=== PATIENT | male | born 1955 | race Hispanic/Latino ===

== ENCOUNTER 2020-03-19 13:08 | Emergency (ER) | payer MEDICARE ==
[~2020-03-19] VITALS: Ht 167.6 cm; Wt 90.7 kg
--- OUTSIDE RECORDS SUMMARY | 2020-03-19 13:41 | XMS REPORT | Summary of Care ---
Author Organization Unknown Address Unknown Phone Unavailable Encounter HQ Encntr_alikristan([facility]) [id number] Date(s): 08/23/14 - 09/21/14 [facility] Discharge Disposition: Home Physician Attending: Donald Salmeron MD Reason for Visit SPEECH Problem List Condition Effective Dates Status Health Status Informan t Cholesterol(Confirme Resolved d) Diabetes Resolved mellitus(Confirmed) Hypertension(Confirm Resolved ed) Allergies, Adverse Reactions, Alerts Substance Reaction Severity Status NKDA Active Medications No data available for this section Medications Administered During Your Visit No data available for this section Immunizations No data available for this section
--- OUTSIDE RECORDS SUMMARY | 2020-03-19 13:41 | XMS REPORT | CCD ---
Author Author Auto FRANSISCA Sutherland [facility] Address Unknown Phone Unavailable Care Team Providers Care Presser First Name Role Phone Dioni Tejada CP Unavailable Allergies, Adverse Reactions, Alerts Substance Reaction Status NKDA Active Problem List Condition Effective Dates Status Cholesterol Resolved Diabetes mellitus Resolved Hypertension Resolved Medications Medication Instructions Start Date End Date Status Flexeril 5 mg oral 5 mg, 1 tab, PO, TID, 21 tab, 09/22/2012 Ordered tablet Substitution Allowed, TAB ibuprofen 600 mg 600 mg, 1 tab, PO, Q6H, PRN, take 09/22/2012 Ordered oral tablet with food, 30 tab, Pain, Substitution Allowed take with food diazepam 10 mg, 2 tab, Route: PO, Drug form: 09/22/201201/2013 Completed TAB, ONCE, Dosing Weight 106.818, kg, Priority: STAT, Start date: 09/22/12 11:17:00, Stop date: 09/22/12 11:17:00 acetaminophen 1,000 mg, 2 tab, Route: PO, Drug 09/22/201201/2013 Completed form: TAB, ONCE, Dosing Weight 106.818, kg, Priority: STAT, Start date: 09/22/12 11:17:00, Stop date: 09/22/12 11:17:00 Vital Signs Most recent to oldest [Reference Range]: 1 Height 167.64 cm (09/22/2012 10:36:00) Weight 106.818 kg (09/22/2012 10:36:00) Results BEDSIDE GLUCOSE TESTING Most recent to oldest [Reference Range]: 1 Gluc POC Lifscn [70-99 mg/dL] 75 mg/dL 1 (09/22/2012 12:06:00) Comment1 Notify RN/MD *NA* (09/22/2012 12:06:00) 1Interpretive Data: Upper Reportable Limit: 200 mg/dL.
--- OUTSIDE RECORDS SUMMARY | 2020-03-19 13:41 | XMS REPORT | Summary of Care ---
Author Author [facility] Address Unknown Phone Unavailable Encounter HQ Encntr_alias([place]) [id number] Date(s): 07/21/17 - 08/19/17 [facility] Discharge Disposition: Home or Self Care Attending Physician: Karla Amaya MD Vital Signs No data available for this section Problem List Condition Effective Dates Status Health Status Informan t Cholesterol(Confirme Resolved d) Diabetes Resolved mellitus(Confirmed) Hypertension(Confirm Resolved ed) Allergies, Adverse Reactions, Alerts Substance Reaction Severity Status NKDA Active Medications No data available for this section Results No data available for this section Immunizations No data available for this section Procedures No data available for this section Social History Social History Type Response 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
--- OUTSIDE RECORDS SUMMARY | 2020-03-19 13:41 | XMS REPORT | CCD ---
Author Author Auto FRANSISCA Sutherland [facility] Address Unknown Phone Unavailable Care Team Providers Care Purchasing Internship Name Role Phone Ariana Thakkar RP Allergies, Adverse Reactions, Alerts Substance Reaction Status NKDA Active Problem List Condition Effective Dates Status Cholesterol Resolved Diabetes mellitus Resolved Hypertension Resolved
--- OUTSIDE RECORDS SUMMARY | 2020-03-19 13:41 | XMS REPORT | CCD ---
Author Author Auto FRANSISCA Sutherland Organization [facility] [place] Address Unknown Phone Unavailable Care Team Providers Care Patient Attendant Name Role Phone Donald Salmeron CP Allergies, Adverse Reactions, Alerts Substance Reaction Status NKDA Active
--- OUTSIDE RECORDS SUMMARY | 2020-03-19 13:41 | XMS REPORT | Summary of Care ---
Author Author [facility] Organization [facility] Address Unknown Phone Unavailable Encounter BRAVO Dodge(BRYN) [id number] Date(s): 07/13/16 - 07/16/16 [facility] [address] [place] [address]- [phone] Discharge Disposition: Home or Self Care Attending Physician: Donald Abel MD Admitting Physician: Donald Abel MD Vital Signs 1 2 3 Most recent to oldest [Reference Range]: 170.18 cm (07/13/16 10:08 AM) Height 98.4 DegF (07/16/16 4:19 PM) 97.3 DegF (07/16/16 11:37 AM) 98 DegF (07/16/16 8:00 AM) Temperature Oral [96.4-99.1 DegF] 139/85 mmHg (07/16/16 4:19 PM) 156/98 mmHg 1 *HI* (07/16/16 11:37 AM) 152/95 mmHg *HI* (07/16/16 8:00 AM) Blood Pressure [90-140/60-90 mmHg] 18 BRMIN (07/16/16 4:19 PM) 16 BRMIN (07/16/16 11:37 AM) 17 BRMIN (07/16/16 8:00 AM) Respiratory Rate [14-20 BRMIN] 97 bpm (07/16/16 4:19 PM) 78 bpm (07/16/16 11:37 AM) 82 bpm (07/16/16 8:00 AM) Peripheral Pulse Rate [60-100 bpm] 93.182 kg (07/13/16 10:08 AM) Weight 32.17 m2 (07/13/16 10:08 AM) Body Mass Index 1Result Comment: reported to nurse Problem List Condition Effective Dates Status Health Status Informgilda t Cholesterol(Confirme Resolved d) Diabetes Resolved mellitus(Confirmed) Hypertension(Confirm Resolved ed) Allergies, Adverse Reactions, Alerts Substance Reaction Severity Status NKDA Active Medications Amitiza 8 mcg oral capsule 8 microgram = 1 cap, PO, Bedtime, # 60 tab, 0 Refill(s) Start Date: 07/13/16 Status: Ordered cefTRIAXone + sodium chloride 0.9% INJ 100 mL 1 gm, Route: IVPB, ONCE, Dosing Weight 93.182, kg, Priority: STAT, Start date: 1 09/12/15 13:02:00 [employer], Stop date: 07/13/16 13:02:00 [employer] Notes: (Same As: Rocephin).Use with 100 mL NS and infuse over 30 min MEDICA TION WASTE Product Size: 1000 mgProduct Wasted: _0__ mg Start Date: 07/13/16 Stop Date: 07/13/16 Status: Completed cefTRIAXone + sodium chloride 0.9% INJ 100 mL 1 gm, Route: IVPB, Daily, Dosing Weight 93.182, kg, Priority: STAT, Start date: 07/13/16 15:02:00 [employer], Duration: 30 day, Stop date: 08/12/16 13:00:00 [employer] Notes: (Same As: Rocephin).Use with 100 mL NS and infuse over 30 min MEDICA TION WASTE Product Size: 1000 mgProduct Wasted: ___ mg Start Date: 07/13/16 Stop Date: 07/16/16 Status: Discontinued ciprofloxacin 500 mg oral tablet 500 mg = 1 tab, PO, Q12H, X 7 day, # 14 tab, 0 Refill(s), called to pharmacy Start Date: 07/16/16 Stop Date: 07/23/16 Status: Ordered Dextrose 50% Syringe 12.5 gm, 25 mL, Route: IVP, Drug Form: INJ, Dosing Weight 93.182, kg, PRN, PRN B lood Glucose Results, Start date: 07/13/16 17:16:00 [employer], Duration: 30 day, Stop date: 08/12/16 17:15:00 [employer] Start Date: 07/13/16 Stop Date: 07/16/16 Status: Discontinued Dextrose 50% Syringe 25 gm, 50 mL, Route: IVP, Drug Form: INJ, Dosing Weight 93.182, kg, PRN, PRN Blo od Glucose Results, Start date: 07/13/16 17:16:00 [employer], Duration: 30 day, Stop da te: 08/12/16 17:15:00 [employer] Start Date: 07/13/16 Stop Date: 07/16/16 Status: Discontinued Diovan 160 mg, 1 tab, Route: PO, Drug form: TAB, Q12H, Start date: 07/13/16 21:00:00 CS T, Duration: 30 day, Stop date: 08/12/16 9:00:00 [employer] Notes: Same as Diovan Start Date: 07/13/16 Stop Date: 07/16/16 Status: Discontinued fenofibrate 145 mg oral tablet 145 mg, 1 tab, Route: PO, Drug form: TAB, Daily, Dosing Weight 93.182, kg, Start date: 07/14/16 9:00:00 [employer], Duration: 30 day, Stop date: 08/12/16 9:00:00 [employer] Notes: (Same as: Tricor) Start Date: 07/14/16 Stop Date: 07/16/16 Status: Discontinued fenofibrate 160 mg oral tablet 160 mg = 1 tab, PO, Daily, 0 Refill(s) Start Date: 07/13/16 Status: Ordered Flagyl 500 mg, 100 mL, Route: IVPB, Drug form: INJ, ONCE, Dosing Weight 93.182, kg, Tri ority: STAT, Start date: 07/13/16 13:02:00 [employer], Stop date: 07/13/16 13:02:00 [employer] Notes: (Same as: Flagyl) Avoid alcohol. Start Date: 07/13/16 Stop Date: 07/13/16 Status: Completed Flagyl 500 mg, 100 mL, Route: IVPB, Drug form: INJ, Q12H, Dosing Weight 93.182, kg, Tri ority: STAT, Start date: 07/13/16 15:02:00 [employer], Duration: 30 day, Stop date: 13:00:00 [employer] Notes: (Same as: Flagyl) Avoid alcohol. Start Date: 07/13/16 Stop Date: 07/16/16 Status: Discontinued Flagyl 500 mg oral tablet 500 mg = 1 tab, PO, Q8H, X 7 day, # 21 tab, 0 Refill(s), called to pharmacy Start Date: 07/16/16 Stop Date: 07/23/16 Status: Ordered glucagon 1 mg, Route: IM, Drug form: PDR/INJ, PRN, Dosing Weight 93.182, kg, PRN Blood Gl ucose Results, Start date: 07/13/16 17:16:00 [employer]RI[employer] LINEMAN, Duration: 30 day, Stop date: 1 10/13/15 17:15:00 [employer] Start Date: 07/13/16 Stop Date: 07/16/16 Status: Discontinued hydrochlorothiazide 25 mg oral tablet 12.5 mg, 0.5 tab, Route: PO, Drug form: TAB, Q12H, Start date: 07/13/16 21:00:00 [employer], Duration: 30 day, Stop date: 08/12/16 9:00:00 [employer] Notes: (Same as: Hydrodiuril) With food. Start Date: 07/13/16 Stop Date: 07/16/16 Status: Discontinued hydrochlorothiazide-valsartan 12.5 mg-160 mg oral tablet 1 tab, PO, Daily, 0 Refill(s) Start Date: 07/13/16 Stop Date: 07/13/16 Status: Discontinued hydrochlorothiazide-valsartan 12.5 mg-160 mg oral tablet 1 tab, Route: PO, Drug Form: TAB, Dosing Weight 93.182, kg, BID, Start date: 9:00:00 DISTRI[employer]EMAN, Duration: 30 day, Stop date: 08/12/16 17:00:00 [employer] Start Date: 07/14/16 Stop Date: 07/13/16 Status: Deleted hydrochlorothiazide-valsartan 12.5 mg-160 mg oral tablet 1 tab, PO, BID, # 30 tab, 0 Refill(s) Start Date: 07/13/16 Status: Ordered hydrochlorothiazide-valsartan 25 mg-320 mg oral tablet 1 tab, PO, Daily, 0 Refill(s) Start Date: 07/13/16 Stop Date: 07/13/16 Status: Deleted insulin aspart 1 unit, 0.01 mL, Route: SUB-Q, Drug form: SOLN, Bedtime, Dosing Weight 93.182, k g, PRN Blood Glucose Results, Start date: 07/13/16 17:16:00 [employer], Duration: 30 da y, Stop date: 08/12/16 17:15:00 [employer] Notes: Roll in palms of hands gently; Do not shake vigorously. (Same as: Ramón Melendrez)"single patient use only"WASTE: F/P - Black; E - Municipal Trash Bin Stable f or 28 days at room temperature.Expires in days from Date Start Date: 07/13/16 Stop Date: 07/16/16 Status: Discontinued insulin aspart 4 unit, 0.04 mL, Route: SUB-Q, Drug form: SOLN, Bedtime, Dosing Weight 93.182, k g, PRN Blood Glucose Results, Start date: 07/13/16 17:16:00 [employer]EM[employer], Duration: 30 da y, Stop date: 08/12/16 17:15:00 [employer] Notes: Roll in palms of hands gently; Do not shake vigorously. (Same as: Ramón Melendrez)"single patient use only"WASTE: F/P - Black; E - Municipal Trash Bin Stable f or 28 days at room temperature.Expires in days from Date Start Date: 07/13/16 Stop Date: 07/16/16 Status: Discontinued insulin aspart 3 unit, 0.03 mL, Route: SUB-Q, Drug form: SOLN, Bedtime, Dosing Weight 93.182, k g, PRN Blood Glucose Results, Start date: 07/13/16 17:16:00 [employer], Duration: 30 da y, Stop date: 08/12/16 17:15:00 [employer] Notes: Roll in palms of hands gently; Do not shake vigorously. (Same as: Ramón Melendrez)"single patient use only"WASTE: F/P - Black; E - Municipal Trash Bin Stable f or 28 days at room temperature.Expires in days from Date Start Date: 07/13/16 Stop Date: 07/16/16 Status: Discontinued insulin aspart 2 unit, 0.02 mL, Route: SUB-Q, Drug form: SOLN, Bedtime, Dosing Weight 93.182, k g, PRN Blood Glucose Results, Start date: 07/13/16 17:16:00 [employer], Duration: 30 da y, Stop date: 08/12/16 17:15:00 [employer] Notes: Roll in palms of hands gently; Do not shake vigorously. (Same as: NovoSTEVEN Melendrez)"single patient use only"WASTE: F/P - Black; E - Municipal Trash Bin Stable f or 28 days at room temperature.Expires in days from Date Start Date: 07/13/16 Stop Date: 07/16/16 Status: Discontinued insulin aspart 5 unit, 0.05 mL, Route: SUB-Q, Drug form: SOLN, TID-Before Meals, Dosing Weight 93.182, kg, PRN Blood Glucose Results, Start date: 07/13/16 17:16:00 DISTRI[employer]ION [employer]EM[employer], Durati on: 30 day, Stop date: 08/12/16 17:15:00 [employer] Notes: Roll in palms of hands gently; Do not shake vigorously. (Same as: NovoSTEVEN G)"single patient use only"WASTE: F/P - Black; E - Municipal Trash Bin Stable f or 28 days at room temperature.Expires in days from Date Start Date: 07/13/16 Stop Date: 07/16/16 Status: Discontinued insulin aspart 1 unit, 0.01 mL, Route: SUB-Q, Drug form: SOLN, TID-Before Meals, Dosing Weight 93.182, kg, PRN Blood Glucose Results, Start date: 07/13/16 17:16:00 [employer]RI[employer]EM[employer], Durati on: 30 day, Stop date: 08/12/16 17:15:00 [employer] Notes: Roll in palms of hands gently; Do not shake vigorously. (Same as: NovoSTEVEN G)"single patient use only"WASTE: F/P - Black; E - Municipal Trash Bin Stable f or 28 days at room temperature.Expires in days from Date Start Date: 07/13/16 Stop Date: 07/16/16 Status: Discontinued insulin aspart 2 unit, 0.02 mL, Route: SUB-Q, Drug form: SOLN, TID-Before Meals, Dosing Weight 93.182, kg, PRN Blood Glucose Results, Start date: 07/13/16 17:16:00 DISTRI[employer]EM[employer], Durati on: 30 day, Stop date: 08/12/16 17:15:00 [employer] Notes: Roll in palms of hands gently; Do not shake vigorously. (Same as: Ramón Melendrez)"single patient use only"WASTE: F/P - Black; E - Municipal Trash Bin Stable f or 28 days at room temperature.Expires in days from Date Start Date: 07/13/16 Stop Date: 07/16/16 Status: Discontinued insulin aspart 3 unit, 0.03 mL, Route: SUB-Q, Drug form: SOLN, TID-Before Meals, Dosing Weight 93.182, kg, PRN Blood Glucose Results, Start date: 07/13/16 17:16:00 DISTRI[employer]EM[employer], Durati on: 30 day, Stop date: 08/12/16 17:15:00 [employer] Notes: Roll in palms of hands gently; Do not shake vigorously. (Same as: Ramón Melendrez)"single patient use only"WASTE: F/P - Black; E - Municipal Trash Bin Stable f or 28 days at room temperature.Expires in days from Date Start Date: 07/13/16 Stop Date: 07/16/16 Status: Discontinued insulin aspart 4 unit, 0.04 mL, Route: SUB-Q, Drug form: SOLN, TID-Before Meals, Dosing Weight 93.182, kg, PRN Blood Glucose Results, Start date: 07/13/16 17:16:00 DISTRI[employer]ION [employer]EM[employer], Durati on: 30 day, Stop date: 08/12/16 17:15:00 [employer] Notes: Roll in palms of hands gently; Do not shake vigorously. (Same as: Ramón Melendrez)"single patient use only"WASTE: F/P - Black; E - Municipal Trash Bin Stable f or 28 days at room temperature.Expires in days from Date Start Date: 07/13/16 Stop Date: 07/16/16 Status: Discontinued Lopid 600 mg, PO, BID, 0 Refill(s) Start Date: 07/13/16 Stop Date: 07/13/16 Status: Deleted morphine Sulfate 2 mg, 1 mL, Route: IVP, Drug form: INJ, Q4H, Dosing Weight 93.182, kg, PRN Pain Score 7-10, Start date: 07/13/16 15:02:00 [employer], Duration: 30 day, Stop date: 07/18 03/01 15:01:00 [employer] Notes: (Same as:MORPhine Sulfate) Start Date: 07/13/16 Stop Date: 07/16/16 Status: Discontinued ondansetron 4 mg, 2 mL, Route: IVP, Drug form: INJ, Q6H, Dosing Weight 93.182, kg, PRN Nause a & Vomiting, Start date: 07/13/16 15:02:00 [employer], Duration: 30 day, Stop date: 08/12/16 15:01:00 [employer] Notes: (Same as: Luiza) MEDICATION WASTE Product Size: 4 mgProduct Was lisette: ___ mg Start Date: 07/13/16 Stop Date: 07/16/16 Status: Discontinued Plavix 75 mg, 1 tab, Route: PO, Drug form: TAB, Daily, Dosing Weight 93.182, kg, Start date: 07/14/16 9:00:00 [employer], Duration: 30 day, Stop date: 08/12/16 9:00:00 [employer] Notes: (Same As: Plavix) Start Date: 07/14/16 Stop Date: 07/16/16 Status: Discontinued Plavix 75 mg oral tablet 75 mg = 1 tab, PO, Daily, # 30 tab, 0 Refill(s) Start Date: 07/13/16 Status: Ordered Saline Flush 0.9% 10 ml, Route: IVP, Drug Form: INJ, Dosing Weight 93.182, kg, PRN, PRN Line Flush , Start date: 07/13/16 15:02:00 [employer], Duration: 30 day, Stop date: 08/12/16 15:01 :00 [employer] Notes: preservative free. Start Date: 07/13/16 Stop Date: 07/16/16 Status: Discontinued Saline Flush 0.9% 10 mL, Route: IVP, Drug Form: INJ, Dosing Weight 93.182, kg, PRN, PRN Line Flush , Start date: 07/13/16 11:01:00 [employer], Duration: 30 day, Stop date: 08/12/16 11:00 :00 [employer] Notes: preservative free. Start Date: 07/13/16 Stop Date: 07/13/16 Status: Discontinued Sodium Chloride 0.9% (Bolus) IV 1,000 mL, 2,000 ml/hr, Infuse Over: 30 minutes, Route: IV, 1,000, Drug form: INJ , ONCE, Priority: STAT, Dosing Weight 93.182 kg, Start date: 07/13/16 13:05:[address], Duration: 1 doses or times, Stop date: 07/13/16 13:05:00 [employer] Start Date: 07/13/16 Stop Date: 07/13/16 Status: Completed sodium chloride 0.9% 1000 ml INJ 1,000 mL 1,000 mL, Rate: 75 ml/hr, Infuse over: 13.3 hr, Route: IV, Dosing Weight 93.182 kg, Total Volume: 1,000, Start date: 07/13/16 15:02:00 DISTRIBUTION [employer]EM[employer], Duration: 30 day, St op date: 08/12/16 15:01:00 [employer]RI[employer] Start Date: 07/13/16 Stop Date: 07/16/16 Status: Discontinued tamsulosin 0.4 mg, 1 cap, Route: PO, Drug form: CAP, BID, Dosing Weight 93.182, kg, Start d ate: 07/14/16 9:00:00 [employer]RI[employer]ION [employer]EM[employer], Duration: 30 day, Stop date: 08/12/16 17:00:00 [employer] Notes: (Same As: Flomax) "Do Not Crush" Start Date: 07/14/16 Stop Date: 07/16/16 Status: Discontinued tamsulosin 0.4 mg oral capsule 0.4 mg = 1 cap, PO, BID, 0 Refill(s) Start Date: 07/13/16 Status: Ordered Results ELECTROLYTES 1 2 3 Most recent to oldest [Reference Range]: 138 mEq/L (07/15/16 11:25 AM) 136 mEq/L (07/14/16 4:18 AM) 136 mEq/L (07/13/16 11:33 AM) Sodium Lvl [135-145 mEq/L] 3.6 mEq/L (07/15/16 11:25 AM) 3.5 mEq/L (07/14/16 4:18 AM) 3.8 mEq/L (07/13/16 11:33 AM) Potassium Lvl [3.5-5.1 mEq/L] 103 mEq/L (07/15/16 11:25 AM) 102 mEq/L (07/14/16 4:18 AM) 101 mEq/L (07/13/16 11:33 AM) Chloride Lvl [95-109 mEq/L] 26 mEq/L (07/15/16:25 AM) 24 mEq/L (07/14/16 4:18 AM) 26 mEq/L (07/13/16 11:33 AM) CO2 [24-32 mEq/L] 12.6 mEq/L (07/15/16: AM) 13.5 mEq/L (07/14/16 4:18 AM) 12.8 mEq/L (07/13/16 11:33 AM) AGAP [10.0-20.0 mEq/L] CHEM PANEL 1 2 3 Most recent to oldest [Reference Range]: 0.74 mg/dL (07/15/16 11:25 AM) 0.79 mg/dL (07/14/16 4:18 AM) 0.79 mg/dL (07/13/16 11:33 AM) Creatinine Lvl [0.50-1.40 mg/dL] 100 mL/min/1.73m2 1 *NA* (07/15/16:25 AM) 97 mL/min/1.73m2 2 *NA* (07/14/16 4:18 AM) 97 mL/min/1.73m2 3 *NA* (07/13/16 11:33 AM) eGFR 12 mg/dL (07/15/16 11:25 AM) 11 mg/dL (07/14/16 4:18 AM) 17 mg/dL (07/13/16 11:33 AM) BUN [7-22 mg/dL] 14 (07/14/16 4:18 AM) 22 (07/13/16 11:33 AM) B/C Ratio [6-25] 83 mg/dL (07/15/16 11:25 AM) 111 mg/dL *HI* (07/14/16 4:18 AM) 78 mg/dL (07/13/16 11:33 AM) Glucose Lvl [70-99 mg/dL] 7.6 g/dL (07/14/16 4:18 AM) 7.9 g/dL (07/13/16 11:33 AM) Total Protein [6.4-8.4 g/dL] 3.2 g/dL *LOW* (07/14/16 4:18 AM) 3.4 g/dL *LOW* (07/13/16 11:33 AM) Albumin Lvl [3.5-5.0 g/dL] 4.4 g/dL *HI* (07/14/16 4:18 AM) 4.5 g/dL *HI* (07/13/16 11:33 AM) Globulin [2.7-4.2 g/dL] 0.7 (07/14/16 4:18 AM) 0.8 (07/13/16 11:33 AM) A/G Ratio [0.7-1.6] 8.3 mg/dL *LOW* (07/15/16 11:25 AM) 8.4 mg/dL *LOW* (07/14/16 4:18 AM) 8.4 mg/dL *LOW* (07/13/16 11:33 AM) Calcium Lvl [8.5-10.5 mg/dL] 2.5 mg/dL (07/14/16 4:18 AM) 2.7 mg/dL (07/13/16 11:33 AM) Phosphorus [2.5-4.5 mg/dL] 2.0 mg/dL (07/15/16 11:25 AM) 1.7 mg/dL *LOW* (07/14/16 4:18 AM) 1.8 mg/dL (07/13/16 11:33 AM) Magnesium Lvl [1.8-2.4 mg/dL] 18 unit/L (07/14/16 4:18 AM) 17 unit/L (07/13/16 11:33 AM) ALT [0-65 unit/L] 16 unit/L (07/14/16 4:18 AM) 20 unit/L (07/13/16 11:33 AM) AST [0-37 unit/L] 57 unit/L (07/14/16 4:18 AM) 64 unit/L (07/13/16 11:33 AM) Alk Phos [39-136 unit/L] 0.8 mg/dL (07/14/16 4:18 AM) 0.7 mg/dL (07/13/16 11:33 AM) Bili Total [0.2-1.3 mg/dL] 179 unit/L (07/13/16 11:33 AM) Lipase Lvl [73-393 unit/L] 1Result Comment: The eGFR is calculated using the CKD-EPI formula. In most young, healthy individuals the eGFR will be >90 mL/min/1.73m2. The eGFR declines with age. An eGFR of 60-89 may be normal in some populations, particularly the elderly, for whom the CKD-EPI formula has not been extensively validated. Use of the eGFR is not recommended in the following populations: Individuals with unstable creatinine concentrations, including patients and those with serious co-morbid conditions. Patients with extremes in muscle mass or diet. The data above are obtained from the National Kidney Disease Education Program ( NKDEP) which additionally recommends that when the eGFR is used in patients with extremes of body mass index for purposes of drug dosing, the eGFR should be mul tiplied by the estimated BMI. 2Result Comment: The eGFR is calculated using the CKD-EPI formula. In most young, healthy individuals the eGFR will be >90 mL/min/1.73m2. The eGFR declines with age. An eGFR of 60-89 may be normal in some populations, particularly the elderly, for whom the CKD-EPI formula has not been extensively validated. Use of the eGFR is not recommended in the following populations: Individuals with unstable creatinine concentrations, including patients and those with serious co-morbid conditions. Patients with extremes in muscle mass or diet. The data above are obtained from the National Kidney Disease Education Program ( NKDEP) which additionally recommends that when the eGFR is used in patients with extremes of body mass index for purposes of drug dosing, the eGFR should be mul tiplied by the estimated BMI. 3Result Comment: The eGFR is calculated using the CKD-EPI formula. In most young, healthy individuals the eGFR will be >90 mL/min/1.73m2. The eGFR declines with age. An eGFR of 60-89 may be normal in some populations, particularly the elderly, for whom the CKD-EPI formula has not been extensively validated. Use of the eGFR is not recommended in the following populations: Individuals with unstable creatinine concentrations, including patients and those with serious co-morbid conditions. Patients with extremes in muscle mass or diet. The data above are obtained from the National Kidney Disease Education Program ( NKDEP) which additionally recommends that when the eGFR is used in patients with extremes of body mass index for purposes of drug dosing, the eGFR should be mul tiplied by the estimated BMI. CARDIAC ENZYMES 1 2 3 Most recent to oldest [Reference Range]: 115 unit/L (07/13/16 11:33 AM) Total CK [12-191 unit/L] 1.4 ng/mL (07/13/16 11:33 AM) CK MB [0.5-3.6 ng/mL] 1.2 (07/13/16 11:33 AM) CK MB Index [0.0-2.5] <0.02 ng/mL (07/13/16 11:33 AM) Troponin-I [0.00-0.40 ng/mL] URINE AND STOOL 1 2 3 Most recent to oldest [Reference Range]: Clear (07/13/16 12:56 PM) UA Turbidity [Clear] Yellow *NA* (07/13/16 12:56 PM) UA Color [Yellow] 6.0 (07/13/16 12:56 PM) UA pH [5.0-8.0] 1.020 (07/13/16 12:56 PM) UA Spec Grav [<=1.030] Negative mg/dL *NA* (07/13/16 12:56 PM) UA Glucose [Negative mg/dL] Small *ABN* (07/13/16 12:56 PM) UA Blood [Negative] Negative mg/dL *NA* (07/13/16 12:56 PM) UA Ketones [Negative mg/dL] 100 mg/dL *ABN* (07/13/16 12:56 PM) UA Protein [Negative mg/dL] <=1.0 mg/dL *NA* (07/13/16 12:56 PM) UA Urobilinogen [0.1-1.0 mg/dL] Negative *NA* (07/13/16 12:56 PM) UA Bili [Negative] Negative (07/13/16 12:56 PM) UA Leuk Est [Negative] Negative (07/13/16 12:56 PM) UA Nitrite [Negative] <1 /HPF (07/13/16 12:56 PM) UA WBC [0-5 /HPF] 8 /HPF *HI* (07/13/16 12:56 PM) UA RBC [0-2 /HPF] Occasional /LPF *NA* (07/13/16 12:56 PM) UA Sq Epi [Few /LPF] HEMATOLOGY 1 2 3 Most recent to oldest [Reference Range]: 10.9 K/CMM *HI* (07/15/16 11:25 AM) 13.1 K/CMM *HI* (07/14/16 4:18 AM) 16.0 K/CMM *HI* (07/13/16 11:33 AM) WBC [3.7-10.4 K/CMM] 4.93 M/CMM (07/15/16 11:25 AM) 4.99 M/CMM (07/14/16 4:18 AM) 5.18 M/CMM (07/13/16 11:33 AM) RBC [4.70-6.10 M/CMM] 14.8 g/dL (07/15/16 11:25 AM) 14.6 g/dL (07/14/16 4:18 AM) 15.1 g/dL (07/13/16 11:33 AM) Hgb [14.0-18.0 g/dL] 43.0 % (07/15/16 11:25 AM) 43.3 % (07/14/16 4:18 AM) 45.2 % (07/13/16 11:33 AM) Hct [42.0-54.0 %] 87.1 fL (07/15/16 11:25 AM) 86.9 fL (07/14/16 4:18 AM) 87.3 fL (07/13/16 11:33 AM) MCV [80.0-94.0 fL] 29.9 pg (07/15/16 11:25 AM) 29.3 pg (07/14/16 4:18 AM) 29.1 pg (07/13/16 11:33 AM) MCH [27.0-31.0 pg] 34.4 g/dL (07/15/16 11:25 AM) 33.7 g/dL (07/14/16 4:18 AM) 33.3 g/dL (07/13/16 11:33 AM) MCHC [32.0-36.0 g/dL] 12.4 % (07/15/16 11:25 AM) 12.5 % (07/14/16 4:18 AM) 12.8 % (07/13/16 11:33 AM) RDW [11.5-14.5 %] 183 K/CMM (07/15/16 11:25 AM) 186 K/CMM (07/14/16 4:18 AM) 195 K/CMM (07/13/16 11:33 AM) Platelet [133-450 K/CMM] 8.7 fL (07/15/16 11:25 AM) 8.6 fL (07/14/16 4:18 AM) 8.4 fL (07/13/16 11:33 AM) MPV [7.4-10.4 fL] 74.2 % (07/15/16 11:25 AM) 81.1 % *HI* (07/14/16 4:18 AM) 79.3 % *HI* (07/13/16 11:33 AM) Segs [45.0-75.0 %] 9.8 % *LOW* (07/15/16 11:25 AM) 7.7 % *LOW* (07/14/16 4:18 AM) 9.3 % *LOW* (07/13/16 11:33 AM) Lymphocytes [20.0-40.0 %] 13.9 % *HI* (07/15/16 11:25 AM) 10.0 % (07/14/16 4:18 AM) 9.7 % (07/13/16 11:33 AM) Monocytes [2.0-12.0 %] 1.7 % (07/15/16 11:25 AM) 0.9 % (07/14/16 4:18 AM) 1.3 % (07/13/16 11:33 AM) Eosinophils [0.0-4.0 %] 0.4 % (07/15/16 11:25 AM) 0.3 % (07/14/16 4:18 AM) 0.4 % (07/13/16 11:33 AM) Basophils [0.0-1.0 %] 8.1 K/CMM (07/15/16 11:25 AM) 10.7 K/CMM *HI* (07/14/16 4:18 AM) 12.6 K/CMM *HI* (07/13/16 11:33 AM) Segs-Bands # [1.5-8.1 K/CMM] 1.1 K/CMM (07/15/16 11:25 AM) 1.0 K/CMM (07/14/16 4:18 AM) 1.5 K/CMM (07/13/16 11:33 AM) Lymphocytes # [1.0-5.5 K/CMM] 1.5 K/CMM *HI* (07/15/16 11:25 AM) 1.3 K/CMM *HI* (07/14/16 4:18 AM) 1.5 K/CMM *HI* (07/13/16 11:33 AM) Monocytes # [0.0-0.8 K/CMM] 0.2 K/CMM (07/15/16 11:25 AM) 0.1 K/CMM (07/14/16 4:18 AM) 0.2 K/CMM (07/13/16 11:33 AM) Eosinophils # [0.0-0.5 K/CMM] 0.1 K/CMM (07/13/16 11:33 AM) Basophils # [0.0-0.2 K/CMM] 14.8 seconds *HI* (07/13/16 11:33 AM) PT [12.0-14.7 seconds] 1.14 (07/13/16 11:33 AM) INR [0.85-1.17] 29.4 seconds (07/13/16 11:33 AM) PTT [22.9-35.8 seconds] Immunizations No data available for this section Procedures No data available for this section Social History Social History Type Response 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 Patient has significant dysarthria from CVA 5 years ago and has had issues with some oropharyngeal dysphagia as well. MBS was normal. Per specch therapist " Reduced anterior to posterior tongue movment with chin lifting to use gravity to help propel the bolus posteriorly. Reduced tongue base retraction with prespill to the vallecula prior to the initiation of the swallow. No penetration or aspiration with thin from a cup, straw, nectar, pudding or cookie." Recommend Ok to discharge on 10 more days of p.o. antibiotics Cipro/Flagyl. The patient will need a colonoscopy as an outpatient after the current episode of diverticulitis resolves. He will follow up with me in clinic in 2 weeks. We will do an EGD at the same time to rule out any other etiology of dysphagia. He will need his Plavix held 3 to 4 days prior to procedure. SUBJECTIVE: Pt feeling better today. Wants to eat regular food and go home. Review of Systems: (-)=Negative,(+)=Positive 1) Const: (-) fever, (-) weight change 2) Skin: (-) rash, (-) bleeding 3) HEENT: (-) difficulty swallowing, (-) swelling 4) Eyes: (-) vision changes, (-) bleedin g 5) Neuro: (-) weakness, (-) headaches 6) Resp: (-) dyspnea on exertion, (-) co ugh 7) Cardio: (-) chest pain, (-) orthopnea 8) GI: (-) blood in stool, (-) reflux 9) : (-) dysuria, (-) bloody discharge 10) Endo: (-) heat intolerance, (-) cold intolerance OBJECTIVE: Vitals: See below General: Alert , Oriented x 3 CVS: s1s2 RRR Resp: CTA Bilaterally Abd : Soft, NT, ND , BS + Ext : no edema PROPAGATION WORKER: No gross motor/sensory defects VitalsTmp(F)[id number] 07/16 11:[id number]--- 07/16 08:[id number]--- 07/16 04:2098.115578/78--96--- 07/16 00:4498.169233/72--97--- 07/15 20:0798.629082/91--95--- 24 Hr Tmax: 98.5F (36.94c) at 07/15 20:0 7Vital Signs are the last 5 in the past 48 hours. Lines, Tubes, and Drains: 07/13/2016 11:44 Peripheral Lines: Hand Right 20 gauge Over the needle catheter No qualifying data available I&ORecordInOutBal 3024hr Tot 300 200 100 2924hr Tot 2580 0 2580 Medications (23) Active Scheduled: (7) cefTRIAXone 1 gm INJ VL + sodium chloride 0.9% INJ 100 mL 1 gm, IVPB, Daily clopidogrel 75 mg TAB 75 mg 1 tab, PO, Daily fenofibrate 145 mg tab 145 mg 1 tab, PO, Daily hydrochlorothiazide 25 mg TAB 12.5 mg 0.5 tab, PO, Q12H metroNIDAZOLE (5mg/ml) premix INJ 500 mg 100 mL, IVPB, Q12H tamsulosin 0.4 mg CAP 0.4 mg 1 cap, PO, BID valsartan 160 mg tab 160 mg 1 tab, PO, Q12H Continuous: (1) sodium chloride 0.9% 1000 ml INJ 1,000 mL 1,000 mL, IV, 75 ml/hr PRN: (15) Dextrose 50% 50 ml INJ syringe 12.5 gm 25 mL, IVP, PRN Dextrose 50% 50 ml INJ syringe 25 gm 50 mL, IVP, PRN glucagon recombinant 1 mg PDR 1 mg, IM, PRN insulin aspart 100 unit/ml 3ml Pen 1 unit 0.01 mL, SUB-Q, TID-Before Meals insulin aspart 100 unit/ml 3ml Pen 2 unit 0.02 mL, SUB-Q, TID-Before Meals insulin aspart 100 unit/ml 3ml Pen 3 unit 0.03 mL, SUB-Q, TID-Before Meals insulin aspart 100 unit/ml 3ml Pen 4 unit 0.04 mL, SUB-Q, TID-Before Meals insulin aspart 100 unit/ml 3ml Pen 5 unit 0.05 mL, SUB-Q, TID-Before Meals insulin aspart 100 unit/ml 3ml Pen 1 unit 0.01 mL, SUB-Q, Bedtime insulin aspart 100 unit/ml 3ml Pen 2 unit 0.02 mL, SUB-Q, Bedtime insulin aspart 100 unit/ml 3ml Pen 3 unit 0.03 mL, SUB-Q, Bedtime insulin aspart 100 unit/ml 3ml Pen 4 unit 0.04 mL, SUB-Q, Bedtime MORPhine sulfate PF 2 mg/ml CARP 2 mg 1 mL, IVP, Q4H ondansetron 4mg/2mL INJ SYRINGE 4 mg 2 mL, IVP, Q6H sodium chloride 0.9% 10 ml INJ (PF) 10 ml, IVP, PRN Labs (Last four charted values) WBC H 10.9(JUL 15)H 13.1(JUL 14)H 16.0(JUL 13) Hgb 14.8(JUL 15)14.6(JUL 14)15.1(JUL 13) Hct 43.0(JUL 15)43.3(JUL 14)45.2(JUL 13) Plt 183(JUL 15)186(JUL 14)195(JUL 13) Na 138(JUL 15)136(JUL 14)136(JUL 13) K 3.6(JUL 15)3.5(JUL 14)3.8(JUL 13) CO2 26(JUL 15)24(JUL 14)26(JUL 13) Cl 103(JUL 15)102(JUL 14)101(JUL 13) Cr 0.74(JUL 15)0.79(JUL 14)0.79(JUL 13) BUN 12(JUL 15)11(JUL 14)17(JUL 13) Glucose Random 83(JUL 15)H 111(JUL 14)78(JUL 13) Mg 2.0(JUL 15)L 1.7(JUL 14)1.8(JUL 13) Phos 2.5(JUL 14)2.7(JUL 13) Ca L 8.3(JUL 15)L 8.4(JUL 14)L 8.4(JUL 13) PT H 14.8(JUL 13) INR 1.14(JUL 13) PTT 29.4(JUL 13) Troponin <0.02(JUL 13) CK MB 1.4(JUL 13) Total CK 115(JUL 13)
--- OUTSIDE RECORDS SUMMARY | 2020-03-19 13:41 | XMS REPORT | CCD ---
Author Author Auto FRANSISCA Sutherland [facility] Address Unknown Phone Unavailable Care Team Providers Care Sewer Hand Name Role Phone Romeo More CP Allergies, Adverse Reactions, Alerts Substance Reaction Status NKDA Active Medications Medication Instructions Start Date End Date Status clonidine 0.2 mg, 1 tab, Route: PO, Drug 02/27/2012 02/27/20 12 Completed form: TAB, ONCE, Priority: STAT, Start date: 02/27/12 13:30:00, Stop date: 02/27/12 13:30:00 Saline Flush 0.9% 5 ml, Route: IVP, Drug Form: INJ, 02/27/2012 02/28/2012 Discontinued PRN, PRN Line Flush, Start date: 02/27/12 12:26:00, Duration: 30 day, Stop date: 03/28/12 12:25:00 Vital Signs Most recent to oldest [Reference Range]: 1 Height 167.64 cm (02/27/2012 12:15:00) Weight 103.182 kg (02/27/2012 12:15:00) Results URINALYSIS Most recent to oldest [Reference Range]: 1 UA Turbidity [Clear] Slight *ABN* (02/27/2012 13:15:00) UA Color Ltyellow *NA* (02/27/2012 13:15:00) UA pH [5.0-8.0] 7.0 (02/27/2012 13:15:00) UA Spec Grav [<=1.030] 1.010 (02/27/2012 13:15:00) UA Glucose [Negative mg/dL] Negative mg/dL *NA* (02/27/2012 13:15:00) UA Blood [Negative] Small *ABN* (02/27/2012 13:15:00) UA Ketones [Negative mg/dL] Negative mg/dL *NA* (02/27/2012 13:15:00) UA Protein [Negative mg/dL] 100 mg/dL *ABN* (02/27/2012 13:15:00) UA Urobilinogen [0.1-1.0 mg/dL] <=1.0 mg/dL *NA* (02/27/2012 13:15:00) UA Bili [Negative] Negative *NA* (02/27/2012 13:15:00) UA Leuk Est [Negative] Negative (02/27/2012 13:15:00) UA Nitrite [Negative] Negative (02/27/2012 13:15:00) UA WBC [0-5 /HPF] 1 /HPF (02/27/2012 13:15:00) UA RBC [0-2 /HPF] 10 /HPF *HI* (02/27/2012 13:15:00) UA Sq Epi None Seen *NA* (02/27/2012 13:15:00) CHEMISTRY Most recent to oldest [Reference Range]: 1 Sodium Lvl [135-145 mEq/L] 140 mEq/L (02/27/2012 13:05:00) Potassium Lvl [3.5-5.1 mEq/L] 3.6 mEq/L (02/27/2012 13:05:00) Chloride Lvl [95-109 mEq/L] 104 mEq/L (02/27/2012 13:05:00) CO2 [24-32 mEq/L] 29 mEq/L (02/27/2012 13:05:00) AGAP [10.0-20.0 mEq/L] 10.6 mEq/L (02/27/2012 13:05:00) Creatinine Lvl [0.5-1.4 mg/dL] 1.0 mg/dL (02/27/2012 13:05:00) BUN [7-22 mg/dL] 16 mg/dL (02/27/2012 13:05:00) B/C Ratio [6-25] 16 (02/27/2012 13:05:00) Glucose Lvl [70-99 mg/dL] 86 mg/dL 1 (02/27/2012 13:05:00) Total Protein [6.4-8.4 g/dL] 8.0 g/dL (02/27/2012:05:00) Albumin Lvl [3.5-5.0 g/dL] 3.7 g/dL (02/27/2012:05:00) Globulin [2.0-4.0 g/dL] 4.3 g/dL *HI* (02/27/2012:05:00) A/G Ratio [0.7-1.6] 0.9 (02/27/2012:05:00) Calcium Lvl [8.5-10.5 mg/dL] 8.6 mg/dL (02/27/2012:05:00) ALT [0-65 U/L] 33 U/L (02/27/2012:05:00) AST [0-37 U/L] 25 U/L (02/27/2012:05:00) Alk Phos [39-136 U/L] 67 U/L (02/27/2012:05:00) Bili Total [0.2-1.3 mg/dL] 0.3 mg/dL (02/27/2012:05:00) Lactic Acid Lvl [0.5-2.2 mMol/L] 1.6 mMol/L (02/27/2012:05:00) Total CK [12-191 U/L] 171 U/L (02/27/2012:05:00) CK MB [0.5-3.6 ng/mL] 3.3 ng/mL (02/27/2012:05:00) CK MB Index [0.0-2.5] 1.9 (02/27/2012:05:00) Troponin-I [0.00-0.40 ng/mL] 0.04 ng/mL (02/27/2012:05:00) BNP [<=100 pg/mL] 112 pg/mL 2 *HI* (02/27/2012:05:00) 1Interpretive Data: Adult reference range values reflect the clinical guidelines of the [place] [employer]. 2Interpretive Data: Elevated results are in line with increasing severity of congestive heart failure. Minor elevations between 100 and 300 may be seen with Myocardial Ischemia, Sodium retaining drugs, and compensated/treated heart failure. HEMATOLOGY Most recent to oldest [Reference Range]: 1 WBC [3.7-10.4 K/CMM] 12.0 K/CMM *HI* (02/27/2012 13:05:00) RBC [4.70-6.10 M/CMM] 5.93 M/CMM (02/27/2012 13:05:00) Hgb [14.0-18.0 g/dL] 18.4 g/dL *HI* (02/27/2012 13:05:00) Hct [42.0-54.0 %] 54.4 % *HI* (02/27/2012 13:05:00) MCV [80.0-94.0 fL] 91.9 fL (02/27/2012 13:05:00) MCH [27.0-31.0 pg] 31.1 pg *HI* (02/27/2012 13:05:00) MCHC [32.0-36.0 g/dL] 33.9 g/dL (02/27/2012 13:05:00) RDW [11.5-14.5 %] 13.1 % (02/27/2012 13:05:00) Platelet [133-450 K/CMM] 167 K/CMM (02/27/2012 13:05:00) MPV [7.4-10.4 fL] 9.7 fL (02/27/2012 13:05:00) Segs [45.0-75.0 %] 82.0 % *HI* (02/27/2012:05:00) Lymphocytes [20.0-40.0 %] 13.3 % *LOW* (02/27/2012 13:05:00) Monocytes [2.0-12.0 %] 4.4 % (02/27/2012 13:05:00) Eosinophils [0.0-4.0 %] 0.1 % (02/27/2012 13:05:00) Basophils [0.0-1.0 %] 0.2 % (02/27/2012 13:05:00) Segs-Bands # [1.5-8.1 K/CMM] 9.9 K/CMM *HI* (02/27/2012 13:05:00) Lymphocytes # [1.0-5.5 K/CMM] 1.6 K/CMM (02/27/2012 13:05:00) Monocytes # [0.0-0.8 K/CMM] 0.5 K/CMM (02/27/2012 13:05:00) Eosinophils # [0.0-0.5 K/CMM] 0.0 K/CMM (02/27/2012 13:05:00) Basophils # [0.0-0.2 K/CMM] 0.0 K/CMM (02/27/2012 13:05:00) PT [12.0-14.7 seconds] 12.7 seconds (02/27/2012 13:05:00) INR [0.85-1.17] 0.95 3 (02/27/2012 13:05:00) PTT [22.9-35.8 seconds] 27.7 seconds 4 (02/27/2012 13:05:00) 3Interpretive Data: RECOMMENDED RANGES FOR PROTIME INR: 2.0-3.0 for most medical and surgical thromboembolic states. 2.5-3.5 for artificial heart valves and recurrent embolism. INR SHOULD BE USED ONLY FOR PATIENTS ON STABLE ANTICOAGULANT THERAPY. 4Interpretive Data: Heparin Therapeutic Range: 57 - 92 Seconds Microbiology Reports PROCEDURE:Culture: Blood STATUS: In Progress BODY SITE: COLLECTED DATE/TIME: 02/27/2012 12:55:00 SOURCE: Blood FREE TEXT SOURCE: PRELIMINARY REPORTS Preliminary Report No Growth At 1 Day Preliminary Report No Growth; Holding PROCEDURE:Culture: Blood STATUS: In Progress BODY SITE: Right Hand COLLECTED DATE/TIME: 02/27/2012 12:45:00 SOURCE: Blood FREE TEXT SOURCE: PRELIMINARY REPORTS Preliminary Report No Growth At 1 Day Preliminary Report No Growth; Holding
--- OUTSIDE RECORDS SUMMARY | 2020-03-19 13:41 | XMS REPORT | Summary of Care ---
Author Author [facility] Organization [facility] Address Unknown Phone Unavailable Encounter [facility] [employer](FIN) [id number] Date(s): 08/29/19 - 08/29/19 [facility] [address] [place] [address]- [phone] Discharge Disposition: Home or Self Care Attending Physician: Annalee Cordova MD Referring Physician: Annalee Cordova MD Vital Signs No data available for this section Problem List Condition Effective Dates Status Health Status Informan t Cholesterol(Confirme Resolved d) Diabetes Resolved mellitus(Confirmed) Hypertension(Confirm Resolved ed) Allergies, Adverse Reactions, Alerts No Known Medication Allergies Medications No data available for this section Results No data available for this section Immunizations No data available for this section Procedures No data available for this section Social History Social History Type Response Smoking Status Never smoker; 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
--- OUTSIDE RECORDS SUMMARY | 2020-03-19 13:41 | XMS REPORT | Summary of Care ---
Author Author [facility] Address Unknown Phone Unavailable Encounter [facility] [employer](FIN) [id number] Date(s): 09/02/19 - 09/02/19 [facility] [address] [place] [address]- Discharge Disposition: Home or Self Care Attending [...]
--- OUTSIDE RECORDS SUMMARY | 2020-03-19 13:41 | XMS REPORT | CCD ---
Author Author Auto FRANSISCA Sutherland Organization [facility] Address Unknown Phone Unavailable Care Team Providers Care Oxygen Therapy Technician Name Role Phone Jeremias Shaikh CP Allergies, Adverse Reactions, Alerts Substance Reaction Status NKDA Active Problem List Condition Effective Dates Status Cholesterol Resolved Diabetes mellitus Resolved Hypertension Resolved
--- OUTSIDE RECORDS SUMMARY | 2020-03-19 13:41 | XMS REPORT | Continuity of Care Document ---
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 without aspiration, penetration or nasal regurgitation. There is symmetric movement of the vallecular and piriform sinus with phonation and trumpeting maneuvers. Fluoroscopy time: 86 seconds Number of fluoro spot images: 22 Reference air kerma: 41.50 mGy IMPRESSION: 1. Normal swallow portion of the examina tion. 2. 4-5 cm type 3 paraesophageal hernia. 3. Reflux to the lower esophagus. 4. Esophageal irregularity secondary to esophagitis, Overton's changes. Aki Alfaro MD On 09/02/2019 10:41:02; [id number] 09/02/2019 [facility] Esophagus BA swallow function video DX PROCEDURE INFORMATION: Exam: FL Swallowing Function with Cine or Video Exam date and time: 08/29/2019 10:18 AM Age: 64 years old Clinical indication: Dysphagia, pharyngoesophageal phase; Additional info: Fluoro time: 0.7 min / reference air kerma: 4.3 mgy / Dr. 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 Guided with fluoroscopy. Exam supervised by facility personnel. Contrast material: BARIUM; Contrast volume: 50 ml; Contrast route: ORAL; COMPARISON: CR ESOPHAGUS BA SWALLOW FUNCTION VIDEO DX 07/15/2016 2:27 PM FINDINGS: FINDINGS: Modified barium swallow examination was performed under the supervision of the speech pathology service. The patient ingested thin liquids, thick liquids, pureed and solid substances. Thin: There is no laryngeal penetration or aspiration seen. Penetration aspiration scale 2 with straw. [place]: There is no laryngeal penetration or aspiration seen. Pudding: There is no laryngeal penetration or aspiration seen. Cracker: There is no laryngeal penetration or aspiration seen. Please refer to the official speech pathology report for complete assessment. IMPRESSION: 1. Modified swallow examination under e supervision of speech pathology, as noted above. Other findings: Fluoroscopy time: 45; Number of fluoro spot images: 1336; Reference air kerma: 4.3 mGy Aki Alfaro MD On 08/29/2019 13:39:31; [id number] 08/29/2019 [facility] Scrotal/Testicle w Doppler US PROCEDURE INFORMATION: Exam: US Scrotum Exam date and time: 06/29/2019 3:00 PM Clinical history: 63 years old, male; /pain and swelling bilateral TECHNIQUE: Imaging protocol: Real-time ultrasound of the scrotum and contents with color Doppler and image documentation. COMPARISON: No relevant prior studies available. FINDINGS: Right testicle: Normal. No mass. Small testicular cyst measures 5 x 4 x 3 mm. No torsion. Normal vascular flow. Right testicle = 5.7 x 2.6 x 2.6 cm. Left testicle: Normal. No mass. Small testicular cyst measures 5 x 2 x 4 mm. No torsion. Normal vascular flow. Left testicle = 4.5 x 2.4 x 2.6 cm. Epididymides: Normal. Adjacent to the head of the left epididymis there is a small lobulated soft tissue nodule measuring approximately 6 x 6 x 5 mm. Possible complex epididymal cyst or small appendix epididymis. Scrotum: Normal. IMPRESSION: 1. Bilateral small epididymal cysts of d oubtful clinical significance. 2. Possible small appendix epididymis on the left near the epididymal head. 3. Otherwise negative scrotal ultrasound . Ugo Davis MD On 06/29/2019 15:51:31; [id number] 06/29/2019 [facility] Esophagus BA swallow function video DX Esophagus BA swallow function video DX Modified barium swallow: CLINICAL HISTORY:Dysphagia .CVA TECHNIQUE: Fluoroscopic assistance was provided for the speech pathologist for modified barium swallow examination. Varying consistencies of barium were administered po. FINDINGS: No significant oral delay is noted with liquid barium and barium with solids. No evidence for aspiration or any significant laryngeal penetration with thin consistency barium and nectar consistency barium. No evidence for aspiration or any significant laryngeal penetration with pudding consistency barium and barium with cracker preparations. Please, see report by speech pathologist for more detailed assessment. IMPRESSION: Normal study. FT: 1.4 minutes SL: [id number] 07/15/2016 [facility] Abdomen/Pelvis wo IV contrast CT Patient Name: FRANSISCA RATLIFF : 1955; Age: 60 years y/o Male MR: [id number] * I. COMPUTED TOMOGRAPHY SCAN OF THE ABDOMEN without contrast. * II. COMPUTED TOMOGRAPHY SCAN OF THE PELVIS without contrast (Renal stone protocol). HISTORY: Generalized Nonspecific Abdominal Pain, Acute, Lower Abdominal Pain, Dysuria; Renal Stone Protocol COMPARISON: None * TECHNIQUE: I. COMPUTED TOMOGRAPHY SCAN OF THE ABDOMEN without contrast: Helical CT images were obtained on a multidetector computed tomography from the domes the diaphragms to the iliac crests. Neither oral or intravenous contrast was administered. II. COMPUTED TOMOGRAPHY SCAN OF THE PELVIS without contrast: Helical CT images were obtained on a multidetector computed tomography from the iliac crests to the pubic symphysis. Neither oral or intravenous contrast was administered. Coronal and sagittal reconstructions were obtained. CT radiation dose DLP: 1231 mGy-cm FINDINGS: There are findings consistent with moderate acute sigmoid diverticulitis. There is extensive sigmoid diverticular disease and moderately extensive inflammation adjacent to the mid sigmoid colon. There is no extraluminal gas or abscess. There is a relatively large amount of fecal material within the colon (constipation). The gastrointestinal structures are otherwise unremarkable. There is no evidence of obstruction or significant ileus. The appendix is not definitely visualized. There is no evidence of appendicitis. No urinary tract calculi are seen. There is no hydronephrosis. There is a small (15 mm) central left renal cyst. No other focal lesions are seen involving the kidneys on this limited noncontrast study. The kidneys are normal in size. There is no free intraperitoneal gas, intra-abdominal abscess, ascites, or other fluid collection. The liver, spleen, pancreas, and adrenal glands are normal in appearance. Evaluation of the solid organs is limited due to lack of intravenous contrast. No mass or adenopathy is seen within the abdomen or pelvis. The aorta is normal in caliber. There are mild atherosclerotic calcifications. There is a small umbilical hernia. There is no herniation of bowel. There are small to moderate sized bilateral inguinal hernias measuring approximately 3 cm in diameter. There is no herniation of bowel. The visualized lung bases are clear. There are no pleural effusions. The heart is at the upper limits of normal in size. Right coronary artery calcifications are noted. There is no pericardial effusion. There are mild scattered degenerative changes in the visualized spine. There is also advanced degenerative facet disease on the right at L4-L5. Otherwise, the osseous structures are unremarkable. No blastic or destructive lesions are seen. IMPRESSION: 1. Findings consistent with moderate si gmoid diverticulitis. There is extensive underlying sigmoid diverticulosis. 2. No abscess, or other fluid collection , or free peritoneal gas. 3. Constipation. 4. Small left renal cyst. 5. Small umbilical hernia. 6. Small to moderate bilateral inguinal hernias. 7. Right coronary artery calcifications. There are mild atherosclerotic changes involving the abdominal aorta. 8. The heart size is at the upper limits of normal. SL: [id number] 07/13/2016 [facility] Chest 1view DX Patient Name: Sage RATLIFF : 1955; Age: 60 years y/o Male MR: [id number] Study: Chest 1view DX dated 07/13/2016 Clinical Indication: Coughing; Comparison: 07/29/2012 Mild enlargement of cardiac silhouette and mediastinal structures are stable. No focal infiltrates within the lungs, no edema and no pneumothorax. SL: [id number] 07/13/2016 [facility] Esophagus barium swallow ESOPH ANGI CLINICAL HISTORY: Dysphagia. TECHNIQUE: Double contrast exam with barium and air. COMPARISON: Previous exam of 04/01/2013 FLUORO TIME: 13 seconds. FINDINGS: Contrast images of the esophagus reveal an unremarkable course and caliber. No radiographic evidence of obstruction, stricture, intrinsic or extrinsic filling defect, diverticulum, or hiatal hernia. Swallowing and esophageal motility are unremarkable. Mild reflux into the esophagus was identified during intermittent fluoroscopy. IMPRESSION: Mild gastroesophageal reflux, less severe than on the comparison study. 03/16/2014 [facility] Knee AP and lateral HISTORY: O steoarthrosis TECHNIQUE: AP and lateral views of the right knee COMPARISON: 07/29/2012 FINDINGS: Mild joint space narrowing, small marginal osteophytes, and very mild subchondral sclerosis are again seen, indicative of mild osteoarthrosis. No acute fracture or dislocation. No joint effusion. No suspicious osseous lesion. Overlying soft tissues are within normal limits. IMPRESSION: Stable mild osteoarthrosis. 12/05/2013 [facility] Brain wo contrast MRI MRI BRAI N WITHOUT CONTRAST INDICATION: Muscle weakness, dysarthria COMPARISON: MRI brain 04/01/2013, CT brain 09/22/2012 DISCUSSION: There are mild generalized involutional changes of the brain. There are stable scattered white matter foci of T2 FLAIR hyperintensity, likely secondary to microangiopathic change. There is a chronic lacunar infarct of the lateral left thalamus. There are stable dystrophic calcifications of the left frontal lobe and paramedian left thalamus, secondary to remote infectious or inflammatory etiology. There is no evidence of acute vascular insults, space occupying lesions, hemorrhage, hydrocephalus, midline shift, or extra-axial collections. No cortical based, suprasellar, craniocervical, or bone marrow abnormalities are seen. IMPRESSION: 1. Stable chronic ischemic and age relat ed changes of the brain. 2. Dystrophic calcifications in the ramon on of the left frontal lobe and paramedian left thalamus are likely sequela of remote neurocysticercosis. 3. No acute intracranial abnormalities a re visualized. SL: 16 08/18/2013 [facility] barium swallow Bariu m esophagram INDICATION: Slurred speech, difficulty swallowing. TECHNIQUE: Multiple spot fluoroscopic images of the esophagus after oral administration of barium and air. Fluoroscopic time of 29 seconds. FINDINGS: Normal location of the gastroesophageal junction. Esophageal mucosa is unremarkable, and there is no obstruction. A few late tertiary contractions of the esophagus were present and may represent mild dysmotility. There was gastroesophageal reflux to the level of the midthoracic esophagus on supine water testing. IMPRESSION: Moderate gastroesophageal reflux. 04/01/2013 [facility] Brain w/wo contrast MRI HISTOR Y: DIVATED NASAL SEPTUM, SLURRED SPEECH COMPARISON: None Technique: Precontrast Sagittal T1, axial T1, T2, FLAIR, and diffusion-weighted images of the brain. Postcontrast axial and coronal T1 with fat-sat FINDINGS: There is normal parenchymal volume with scattered and confluent FLAIR hyperintensities within the deep and subcortical white matter likely from mild chronic small vessel ischemic disease. There is no abnormal enhancement. There are no signs of acute hemorrhage, infarction, or edema. There is no hydrocephalus or extra-axial fluid collections. The orbits are unremarkable. No fluid signal seen within the visualized paranasal sinuses and mastoid air cells. IMPRESSION: No acute abnormalities. 04/01/2013 [facility] Spine Lumbar Comp w/Bend views EXAMINATION: Lumbar AP, lateral with flexion-extension, and coned down lumbosacral views INDICATION: Back pain. DISCUSSION: Comparison is made to April 06, 2010 exam. There is normal alignment of the lumbar spine vertebral bodies. No fractures or dislocations are seen. The pedicles and transverse processes are intact. Degenerative changes are most notable in the lower thoracic spine with decreased height of the intervertebral space and anterior osteophyte formation. There is also degenerative changes of themid to lower lumbar spine predominately in the facets with small posterior osteophytes. There is no evidence of uncovering of the facets or listhesis on flexion and extension views. Flexion is somewhat limited. IMPRESSION: No evidence of acute bony abnormality by spine x-rays. If clinical concern persists may consider further evaluation with CT or MRI of the lumbar spine. 03/07/2013 [facility] Consultation Notes No Data Provided for This Section Discharge Summaries No Data Provided for This Section History and Physicals No Data Provided for This Section Vital Signs Vital Sign Value Date Comments Source Systolic (mm Hg) 135 06/30/2019 [facility] Diastolic (mm Hg) 89 06/30/2019 [facility] Temperature Oral (F) 98.3 F 06/30/2019 [facility] Heart Rate 68 06/30/2019 [facility] Respitory Rate 15 06/30/2019 [facility] Temperature Oral (F) 98.5 F 06/29/2019 [facility] Systolic (mm Hg) 153 06/29/2019 [facility] Diastolic (mm Hg) 95 06/29/2019 [facility] Heart Rate 76 06/29/2019 [facility] Rate 16 06/29/2019 [facility] Temperature Oral (F) 98.5 F 06/29/2019 [facility] Temperature Oral (F) 98.4 F 07/16/2016 [facility] Heart Rate 97 07/16/2016 [facility] Systolic (mm Hg) 139 07/16/2016 [facility] Diastolic (mm Hg) 85 07/16/2016 [facility] Respitory Rate 18 07/16/2016 [facility] Respitory Rate 16 07/16/2016 [facility] Systolic (mm Hg) 156 07/16/2016 [facility] Diastolic (mm Hg) 98 07/16/2016 [facility] Heart Rate 78 07/16/2016 [facility] Temperature Oral (F) 97.3 F 07/16/2016 [facility] Temperature Oral (F) 98 F 07/16/2016 [facility] Respitory Rate 17 07/16/2016 [facility] Heart Rate 82 07/16/2016 [facility] Systolic (mm Hg) 152 07/16/2016 [facility] Diastolic (mm Hg) 95 07/16/2016 [facility] Height 170.18 cm 07/13/2016 [facility] BMI Calculated 32.17 07/13/2016 [facility] Weight 93.182 07/13/2016 [facility] Weight 106.818 09/22/2012 [facility] Height 167.64 cm 09/22/2012 [facility] Height 167.64 cm 02/27/2012 [facility] Weight 103.182 02/27/2012 [facility] Encounters Location Location Details Encounter Type Encounter Number Reason For Visit Attending Provider ADM Date DC Date Status Source [facility] Emergency [id number] NACHO TORRES 02/27/2012 02/27/2012 Discharged [facility] Emergency [id number] TAYE HI 09/22/2012 09/22/2012 Discharged [facility] AUDIT [id number] 09/23/2012 09/24/2012 [facility] AUDIT [id number] 10/15/2012 10/16/2012 [facility] Enzo CAPONE ivan: INDIGO ARANGO, Status: Adryan, Time: 10:00 AM [id number] 12/10/19 13 10/16/2012 [facility] Outpatient [id number] MUSCLE WEAKNESS 7 28.87 / DYSARTRIA 784.51 LUBNA TYLER 08/18/2013 Active [facility] [place] [facility] [id number] 05 Lubna Tyler 12/05/2013 12/06/2013 [facility] [place] [facility] [place] [facility] [id number] 06 Karla Jose Luis 03/16/2014 03/17/2014 [facility] [place] [facility] OP Therapy Patients [id number] Donald Caldwelluirre 08/23/2014 09/22/2014 [facility] OP Therapy Patients [id number] Tyler Kim 06/12/2016 07/12/2016 [facility] Inpatient [id number] Donald Idris Pérez Jr 07/13/2016 07/16/2016 [facility] OP Therapy Patients [id number] Karla Amaya 07/21/2017 08/20/2017 [facility] Emergency [id number] Thaddeus Wing 06/29/2019 06/30/2019 [facility] Outpatient [id number] Annalee Cordova 08/29/2019 08/30/2019 [facility] Outpatient [id number] Annalee Cordova 09/02/2019 09/03/2019 [facility] Procedures No Data Provided for This Section Assessment and Plan Assessment and Plan Date Source Extracted from:Title: Clinical Document Author: Efraín George MD Date: 07/16/16 Progress Note Gastroenterology and Hepatology ASSESSMENT [...] , BS + Ext : no edema INTERIOR PAINTER: No gross motor/sensory defects Vitals Tmp(F) Pulse BP RR SpO2 FIO2 07/16 11:37 97.3 78 156/98 1 6 95 --- 07/16 08:00 98 82 152/95 17 94 --- 07/16 04:20 98.3 94 139/78 - - 96 --- 07/16 00:44 98.1 87 124/72 - - 97 --- 07/15 20:07 98.5 87 146/91 - - 95 --- 24 Hr Tmax: 98.5F (36.94c) at 07/15 20:0 7 Vital Signs are the last 5 in the past 48 hours. Lines, Tubes, and Drains: 07/13/2016 11:44 Peripheral Lines: Hand Right 20 gauge Over the needle catheter No qualifying data available I&O Record In Out Bal 07/16 24hr Tot 300 200 100 07/15 24hr Tot 2580 0 2580 Medications (23) Active [...] Labs (Last four charted values) WBC H 10.9 (JUL 15) H 13.1 (JUL 14) H 16.0 (JUL 13) Hgb 14.8 (JUL 15) 14.6 (JUL 14) 15.1 (JUL 13) Hct 43.0 (JUL 15) 43.3 (JUL 14) 45.2 (JUL 13) Plt 183 (JUL 15) 186 (JUL 14) 195 (JUL 13) Na 138 (JUL 15) 136 (JUL 14) 136 (JUL 13) K 3.6 (JUL 15) 3.5 (JUL 14) 3.8 (JUL 13) CO2 26 (JUL 15) 24 (JUL 14) 26 (JUL 13) Cl 103 (JUL 15) 102 (JUL 14) 101 (JUL 13) Cr 0.74 (JUL 15) 0.79 (JUL 14) 0.79 (JUL 13) BUN 12 (JUL 15) 11 (JUL 14) 17 (JUL 13) Glucose Random 83 (JUL 15) H 111 (JUL 14) 78 (JUL 13) Mg 2.0 (JUL 15) L 1.7 (JUL 14) 1.8 (JUL 13) Phos 2.5 (JUL 14) 2.7 (JUL 13) Ca L 8.3 (JUL 15) L 8.4 (JUL 14) L 8.4 (JUL 13) PT H 14.8 (JUL 13) INR 1.14 (JUL 13) PTT 29.4 (JUL 13) Troponin <0.02 (JUL 13) CK MB 1.4 (JUL 13) Total CK 115 (JUL 13) 07/16/2016 [facility] Plan of Care Plan of Care Date Source [QLH] SED RATE BY MODIFIED WESTERGREN Routine[LH] Antinuclear Antibody 09/23/2012 Routine[H] Protein Electrophoresis 09/23/2012 Routine[QLH] PROTEIN, TOTAL AND PROTEIN ELECTROPHORESIS, RANDOM URINE 09/23/2012 Routine 09/24/2012 [facility] Social History Social History Date Source Social History TypeResponse Smoking Status Never smoker; Type: Cigarettes; Previous treatment: None; Exposure to Tobacco Smoke None; Cigarette Smoking Last 365 Days No; Reg Smoking Cessation Counseling No entered on: 06/29/19 06/30/2019 [facility] Social [facility] TypeResponse Smoking Status Never smoker; Type: Cigarettes; Exposure to Tobacco Smoke None; Cigarette Smoking Last 365 Days No; Reg Smoking Cessation Counseling No 07/13/2016 [facility] No History of Drug Use (Denied) Marital History - Currently (Active) 10/16/2012 [facility] Family History No Data Provided for This Section Advance Directives Order Name Results Value Date Source Advance Directives Advance Dir ectives No Advance Directives available. 10/16/2012 [facility] Advance Directives Advance Dir ectives No Advance Directives available. 09/24/2012 [facility] Functional Status No Data Provided for This Section
--- OUTSIDE RECORDS SUMMARY | 2020-03-19 13:41 | XMS REPORT ---
Author Author FRANSISCA ARANGO Organization Unknown Address Unknown Phone Care Team Providers Care Research Professor Of Biostatistics Name Role Phone INDIGO ARANGO PP Reason for Referral No Reason for Referral was given. History of Present Illness No HPI available. Problems * Peripheral Neuropathy (356.9); (Active) * Normal Routine History And Physical Adult (V70.0); (Active) Medication * MetFORMIN HCl 500 MG Oral Tablet; TAKE 1 TABLET DAILY (Active) * Lovastatin 20 MG Oral Tablet; TAKE 1 TABLET DAILY DIRECTED. (Active) * Tribenzor 40-5-25 MG Oral Tablet; TAKE 1 TABLET DAILY (Active) * Vitamin D TABS (Active) * Ibuprofen 600 MG Oral Tablet; TAKE TABLET PRN (Active) * Cyclobenzaprine HCl 5 MG Oral Tablet; TAKE TABLET PRN (Active) Allergies and Adverse Reactions * No Known Drug Allergies (Active) Past Medical History * No Significant Medical History Procedures Procedure Procedure Date Date Completed Status Knee Surgery - - Resolved Social History * No History of Drug Use (Denied) * Marital History - Currently (Active) Advance Directives * No Advance Directives available. Encounters * AUDIT 10/15/2012 * [facility], Provider: INDIGO ARANGO, Status: Adryan, Time: 10:00 AM 12/09/2012
--- OUTSIDE RECORDS SUMMARY | 2020-03-19 13:41 | XMS REPORT | Summary of Care ---
Author Author [facility] Organization [facility] Address Unknown Phone Unavailable Encounter HQ Dar(FIN) [id number] Date(s): 06/29/19 - 06/29/19 [facility] [address] [place] [address]- Encounter Diagnosis Acute epididymitis (Discharge Diagnosis) - 06/29/19 Discharge Disposition: Home or Self Care Attending Physician: Thaddeus Dimas MD Vital Signs 1 2 3 Most recent to oldest [Reference Range]: 98.3 DegF (06/29/19 6:35 PM) 98.5 DegF (06/29/19 4:30 PM) 98.5 DegF (06/29/19 2:31 PM) Temperature Oral [96.4-99.1 DegF] 135/89 mmHg (06/29/19 6:35 PM) 153/95 mmHg *HI* (06/29/19 2:31 PM) Blood Pressure [90-140/60-90 mmHg] 15 BRMIN (06/29/19 6:35 PM) 16 BRMIN (06/29/19 2:31 PM) Respiratory Rate [14-20 BRMIN] 68 bpm (06/29/19 6:35 PM) 76 bpm (06/29/19 2:31 PM) Peripheral Pulse Rate [60-100 bpm] Problem List Condition Effective Dates Status Health Status Informan t Cholesterol(Confirme Resolved d) Diabetes Resolved mellitus(Confirmed) Hypertension(Confirm Resolved ed) Allergies, Adverse Reactions, Alerts No Known Medication Allergies Medications Levaquin 500 mg, 2 tab, Route: PO, Drug form: TAB, ONCE, Dosing Weight 93.182, kg, Start date: 06/29/19 17:20:00 RESEARCH PHYSICIST, Stop date: 06/29/19 17:20:00 RESEARCH PHYSICIST, ABX Indication: U rinary Tract Infection, 0 Notes: Do not give w/antacids, dairy pdt & minerals Take 1 hr before or 2 hr after dairy pdt (Same as:Levaquin) Start Date: 06/29/19 Stop Date: 06/29/19 Status: Completed Levaquin 500 mg oral tablet 500 mg = 1 tab, PO, Q24H, X 10 day, # 10 tab, 0 Refill(s) Start Date: 06/29/19 Stop Date: 07/09/19 Status: Ordered tramadol 50 mg, 1 tab, Route: PO, Drug form: TAB, ONCE, Dosing Weight 93.182, kg, > 50 kg, Priority: STAT, Start date: 06/29/19 17:20:00 RESEARCH PHYSICIST, Stop date: 06/29/19 1 7:20:00 RESEARCH PHYSICIST, 0 Notes: Not to exceed 400mg/day. (Same As: Ultram) Start Date: 06/29/19 Stop Date: 06/29/19 Status: Completed tramadol 50 mg oral tablet 50 mg = 1 tab, PO, Q6H, PRN Pain, X 5 day, # 20 tab, 0 Refill(s) Start Date: 06/29/19 Stop Date: 07/04/19 Status: Ordered Results Most recent to 1 oldest [Reference Range]: UA Bili [Negative] Negative *NA* (06/29/19 4:52 PM) UA Blood [Negative] Moderate *ABN* (06/29/19 4:52 PM) UA Color Ltyellow *NA* (06/29/19 4:52 PM) UA Glucose [Negative Negative mg/dL mg/dL] *NA* (06/29/19 4:52 PM) UA Ketones [Negative Negative mg/dL mg/dL] *NA* (06/29/19 4:52 PM) UA Leuk Est Negative [Negative] (06/29/19 4:52 PM) UA Nitrite Negative [Negative] (06/29/19 4:52 PM) UA pH [5.0-8.0] 5.0 (06/29/19 4:52 PM) UA Protein [Negative 100 mg/dL mg/dL] *ABN* (06/29/19 4:52 PM) UA RBC [0-2 /HPF] 3 /HPF *HI* (06/29/19 4:52 PM) UA Spec Grav 1.023 [<=1.030] (06/29/19 4:52 PM) UA Sq Epi None Seen *NA* (06/29/19 4:52 PM) UA Turbidity [Clear] Clear (06/29/19 4:52 PM) UA Urobilinogen <=1.0 mg/dL [0.1-1.0 mg/dL] *NA* (06/29/19 4:52 PM) UA WBC [0-5 /HPF] <1 /HPF (06/29/19 4:52 PM) Immunizations No data available for this section [...]
--- OUTSIDE RECORDS SUMMARY | 2020-03-19 13:41 | XMS REPORT ---
Author Author FRANSISCA Gorman Organization Unknown Address Unknown Phone Care Team Providers Care Build And Release Manager Name Role Phone Montrell Gorman PP Reason for Referral No Reason for Referral was given. History of Present Illness No HPI available. Problems * Normal Routine History And Physical Adult (V70.0); (Active) * Peripheral Neuropathy (356.9); (Active) Medication * MetFORMIN HCl 500 MG [...] Surgery - - Resolved Social History * Marital History - Currently (Active) * No History of Drug Use (Denied) Treatment Plan * [QLH] SED RATE BY MODIFIED WESTERGREN 09/23/2012 Routine * [LH] Antinuclear Antibody 09/23/2012 Routine * [H] Protein Electrophoresis 09/23/2012 Routine * [QLH] PROTEIN, TOTAL AND PROTEIN ELECTROPHORESIS, RANDOM URINE 09/23/2012 Routine Advance Directives * No Advance Directives available. Encounters * AUDIT 09/23/2012 * GES, Provider: INDIGO ARANGO, Status: Adryan, Time: 10:00 AM 12/09/2012
--- OUTSIDE RECORDS SUMMARY | 2020-03-19 13:41 | XMS REPORT | Summary of Care ---
Author Organization Unknown Address Unknown Phone Unavailable Encounter HQ Encntr_alikristan([facility]) [id number] Date(s): 12/05/13 - 12/05/13 [facility] Outpatient Imaging - [address] [address]- [place] Discharge Disposition: Home Physician Attending: Ariana Thakkar Reason for Visit 715.90 - OSTEOARTHROS NO Problem List Condition Effective Dates Status Health Status Informan t Cholesterol(Confirme Resolved d) Diabetes Resolved mellitus(Confirmed) Hypertension(Confirm Resolved ed) Allergies, Adverse Reactions, Alerts Substance Reaction Severity Status NKDA Active Medications No data available for this section Medications Administered During Your Visit No data available for this section Immunizations No data available for this section
--- OUTSIDE RECORDS SUMMARY | 2020-03-19 13:41 | XMS REPORT | Summary of Care ---
Author Author [facility] Address Unknown Phone Unavailable Encounter HQ Encntr_alias(FIN) [id number] Date(s): 06/12/16 - 07/11/16 [facility] Discharge Disposition: Home or Self Care Attending Physician: Tyler Kim MD Vital Signs No data available for [...]
--- OUTSIDE RECORDS SUMMARY | 2020-03-19 13:41 | XMS REPORT | CCD ---
Author Author Auto FRANSISCA Sutherland Organization [facility] Out[facility] - [place] Address Unknown Phone Unavailable Care Team Providers Care Waiter/Waitress Take Out Name Role Phone Marium Lancaster CP Allergies, Adverse Reactions, Alerts Substance Reaction Status NKDA Active Problem List Condition Effective Dates Status Cholesterol Resolved Diabetes mellitus Resolved Hypertension Resolved
--- OUTSIDE RECORDS SUMMARY | 2020-03-19 13:41 | XMS REPORT | Summary of Care ---
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
--- OUTSIDE RECORDS SUMMARY | 2020-03-19 13:42 | XMS REPORT | Continuity of Care Document ---
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 17:25:008.7[facility] AknjctnKRVBZDBDCC8611-66-31 17:25:43863Ohbzympg NczfltcTSUNPZOVKQ3023-02-74 17:25:0034.4[facility] ULBYWQUCEI3711-34-47 17:25:0012.4[facility] NuzaeskLYYSSUKHMV8280-24-27 17:25:00 87.1[facility] BmzzhswWAQZCEXNGL2326-81-53 17:25:00* Test Item Value Reference Range Interpretation Comments MCH (test code = MCH) 29.9 pg 27.0-31.0 [facility] BvgxchjGZLYCRPJLK1519-20-37 17:25:004.93[facility]annHEMATOLOGY 2016-07-15 17:25:0043.0[facility] KaqfdjmBEYRNANHTU4031-78-92 17:25:0014.8[facility] MmhsijmFMFHGKWSPW8394-82-73 17:25:0010.9[facility]annCHE[facility] JNJFH7705-54-00 10:18:001.7[facility]ann[facility] ZZVJH3403-70-37 10:18:002.5[facility]annCHEM DSLNZ5905-39-95 10:18:0097[facility]annCHE[facility] OIDAZ5162-63-20 10:18:004.4 [facility] FCWNP9887-51-21 10:18:000.7[facility]annCHEM PANEL 2016-07-14 10:18:0018[facility]annCHEM GVWKI5308-02-10 10:18:0016[facility]annCHE[facility] FTETR5371-18-46 10:18:0057[facility] UOFUW9546-76-54 10:18:000.8[facility] QMKUS6378-00-38 10:18:007.6[facility] WXAZH3737-93-42 10:18:0014[facility] MAJVZ4742-42-24 10:18:0013.5 [facility] PAFEC9434-06-68 10:18:003.5[facility]annCHE[facility] PANEL 2016-07-14 10:18:008.4[facility] BKKGA1302-27-13 10:18:003.2[facility] MBXNM5762-34-24 10:18:0024[facility] NRMRF3555-72-21 10:18:72803Nshbygno HermannCHEM KWPLM9616-86-52 10:18:0011[facility] JSLIV1280-28-68 10:18:02419Hmxxkniy [facility]annCHEM SFQCT7734-59-22 10:18:000.79 [facility] KJPBJ4897-75-36 10:18:31388Kmmmjwkz HermannHEMATOLOGY 2016-07-14 10:18:0010.7[facility] WdilczfRNRABMVARO1055-66-11 10:18:001.3[facility] JcjfdvjGVNRYKNRBU4488-61-72 10:18:000.3[facility] AkrjbvkMKAAFZFSDZ6301-89-12 10:18:001.0[facility] WuykaqpFFYISHBAVE8474-00-15 10:18:000.1[facility] XBYOKKIBDA9632-53-31 10:18:0010.0[facility] RypbvbsQUZZGBGFCU3002-52-28 10:18:00 7.7[facility] XtsgxdjQJLNGRFYBW9509-54-49 10:18:000.9[facility]annHEMATOLOGY 2016-07-14 10:18:0081.1[facility] TeqdnjkCSFPGSYDPS5372-91-19 10:18:008.6[facility] XgmssogFCUXQCLPHY9350-89-76 10:18:27552Nwxygkyg OwymekyQZYDRPPUBZ4350-93-49 10:18:004.99[facility] RgfvefpSIPSPVMIUI4603-49-85 10:18:0013.1[facility] COKFGVAJRJ1237-46-75 10:18:00* Test Item Value Reference Range Interpretation Comments MCH (test code = MCH) 29.3 pg 27.0-31.0 [facility] TjuginjCLBDFJVBXE0852-09-69 10:18:0012.5[facility]annHEMATOLOGY 2016-07-14 10:18:0033.7[facility] JyisawdSSIMQKQIMF5038-80-85 10:18:0086.9[facility] CqkoemjUSVNKGGDXU6763-97-08 10:18:0014.6[facility] PwybnllDSILCWGELE8263-73-83 10:18:0043.3[facility] YKMGQ9568-46-84 18:56:00Negative *NA*(07/13/16 12:56 PM)[facility] FWXKP6553-93-98 18:56:00Small *ABN*(07/13/16 12:56 PM)[facility] HWMDV8823-35-37 18:56:00 Negative (07/13/16 12:56 PM)[facility] PMGPS8749-40-47 18:56:00 Negative (07/13/16 12:56 PM)[facility] XRACC1786-05-30 18:56:00<1 [facility] TQNJF1789-75-46 18:56:008[facility] MYJOK6241-43-28 18:56:001.020[facility] KWDWP5213-11-94 18:56:00 Clear (07/13/16 12:56 PM)[facility] OOEJB8075-68-50 18:56:00 Yellow *NA*(07/13/16 12:56 PM)[facility] ZCQPV8234-45-75 18:56:00 6.0[facility] HermannCARDIAC HLOKJWK4100-30-79 17:33:001.2[facility] HermannCARDIAC ADWHCPB2234-48-22 17:33:001.4[facility]annCARDIAC YMWSGJI2483-83-45 17:33:00 115[facility]annCARDIAC UEMXIXX5698-81-81 17:33:00<0.02[facility]annCHEM DQVFT9535-06-14 17:33:002.7[facility]annCHEM YIWKI7968-17-56 17:33:001.8 [facility]annCHE[facility] RVPFK2289-53-18 17:33:01954Exlnzwhe HermannCHEM PANEL 2016-07-13 17:33:000.79[facility]annCHEM OVULC6893-63-30 17:33:82913Varivvjv HermannCHEM FLNYO9875-73-91 17:33:0017[facility]annCHE[facility] ATSKE8608-15-97 17:33:0078[facility]annCHE[facility] UZWFJ0071-28-41 17:33:000.8[facility]annCHE[facility] QPUQC5952-18-27 17:33:004.5[facility]annCHEM MJIYG9480-55-48 17:33:0097 [facility]annCHE[facility] BPBVW2927-70-72 17:33:44390Zafqipkh HermannCHEM PANEL 2016-07-13 17:33:003.8[facility]annCHEM DKBAG0526-53-30 17:33:0026[facility]annCHEM LBVFG5431-18-50 17:33:007.9[facility]annCHEM XMEWK7643-55-20 17:33:008.4[facility]annCHEM KUDWR3313-78-72 17:33:0017[facility]annCHEM ZAKAC7252-33-12 17:33:003.4[facility]annCHEM MROCH3544-15-99 17:33:000.7 [facility]annCHE[facility] HHPWA9500-11-45 17:33:0064[facility]annCHEM PANEL 2016-07-13 17:33:0020[facility]annCHEM DRFSP7468-64-58 17:33:0022[facility]annCHEM NMKVB1695-92-96 17:33:0012.8[facility] UrvcxzoRBIRVOKNVQ4958-04-96 17:33:0012.6[facility] XhlcpfwLBVTSJOSOD7887-99-98 17:33:001.5[facility] EIEJXDJZHQ9356-02-58 17:33:000.4[facility] RkfforhMLTIXDVISD3981-15-48 17:33:001.5 [facility] KhbgmhrLMGFEOVBMS0423-52-82 17:33:001.3[facility] HermannHEMATOLOGY 2016-07-13 17:33:009.7[facility] BuqscieZJQAUCGVBP8028-23-18 17:33:000.2[facility] SoclcjfTJQNAOCAAS4755-89-57 17:33:000.1[facility] GkeaeilPCFRPICGLV5954-81-91 17:33:009.3[facility] LrbmycaQNVZRVKRXU5848-03-35 17:33:0079.3[facility] DEUUUCSAMS2190-26-07 17:33:008.4[facility] YqahgynBKAACHNELU8462-97-31 17:33:78782 [facility] AduvqhkVFCMTDDMIP9813-80-10 17:33:0087.3[facility] HermannHEMATOLOGY 2016-07-13 17:33:0012.8[facility] TuatnzoMRCZGOGKAX1536-04-52 17:33:0033.3[facility] MfprlaeTNLSSHLHRT9586-37-38 17:33:00* Test Item Value Reference Range Interpretation Comments MCH (test code = MCH) 29.1 pg 27.0-31.0 [facility] JnorzjaKAPZQEEABX7880-38-41 17:33:0045.2[facility] HermannHEMATOLOGY 2016-07-13 17:33:0015.1[facility] OddgiicELBZMVYUVS1274-51-71 17:33:005.18[facility] MhmklvvDWUFBQBVQJ0369-94-07 17:33:0016.0[facility] AkmmmgsJPYENOQBOT0108-14-19 17:33:001.14[facility] GfnhlpcBSJHWSVIHL3593-84-35 17:33:00* Test Item Value Reference Range Interpretation Comments PT (test code = PT) 14.8 s 12.0-14.7 [facility] EpwnjmaTHOIPGPENA2358-19-88 17:33:00* Test Item Value Reference Range Interpretation Comments PTT (test code = PTT) 29.4 s 22.9-35.8 [facility] SUQTXLH0329-34-36 18:06:0075[facility] WNATEVTJGC9843-87-11 18:15:00Negative (02/27/2012 13:15:00) [facility] ITVWPXFFKA3289-17-15 18:15:00Negative mg/dL *NA*(02/27/2012 13:15:00) [facility] GgpjakjPEFZGOVWVG0955-41-86 18:15:14016 mg/dL *ABN*(02/27/2012 13:15:00) [facility] ZfsldhiQOMUVYDRNB9007-22-22 18:15:00Negative *NA*(02/27/2012 13:15:00) [facility] NxudcxqPYOCWBCQBX3389-84-86 18:15:00Small *ABN*(02/27/2012 13:15:00) [facility] JpckvymGPJTUCEQNA4120-06-94 18:15:00Negative mg/dL *NA*(02/27/2012 13:15:00) [facility] MjcfiyrVMGPNZNOTZ7059-73-48 18:15:00Negative (02/27/2012 13:15:00) [facility] MbsvbayKBKSFGQVZV4607-31-97 18:15:0010[facility] CELAMCVUNX9594-48-93 18:15:001[facility] RorkvtrQEJYDFVXZY1293-63-49 18:15:001.010 [facility] AtlhfmpBOFCWQDCQW1265-55-53 18:15:007.0[facility]annURINALYSIS 2012-02-27 18:15:00Slight *ABN*(02/27/2012 13:15:00) [facility]annCHEMISTRY 2012-02-27 18:05:001.9[facility] ZxubcffQYKRSFTKG5323-08-68 18:05:001.6[facility] GelnnzfQEIZLEDXK1801-08-67 18:05:003.3[facility] ZfwcwrrWETVSBLGY7273-57-70 18:05:000.04[facility] WtrghpoUCAZSXBRT3729-34-11 18:05:67733[facility] [place] ZKLEMVOZS0963-43-21 18:05:69430Ebkklums NnzkanrOIUUNBVLA5933-22-02 18:05:0016 [facility] WugcjgsDPHFUGNUY1046-26-80 18:05:004.3[facility]annCHEMISTRY 2012-02-27 18:05:000.9[facility] NqvsaynSXEPEVTCJ3037-54-64 18:05:0025[facility] YrgizzxZCTMBLNFU9001-26-54 18:05:0010.6[facility] QmsneaiTCKDJYDFI6736-27-21 18:05:003.7[facility] VuhocgbVYGPSCWFB2907-56-37 18:05:0033[facility] ZUJZQCVON4729-35-24 18:05:0067[facility] WllyhuhOVGEZCIRF3310-59-59 18:05:000.3 [facility] GeqpcvqSZJTLCURS3635-72-47 18:05:0086[facility]annCHEMISTRY 2012-02-27 18:05:0016[facility] ZfmszniFHSHCTMTT0517-62-73 18:05:008.0[facility] SbjnskhXLFESRXWW2370-90-84 18:05:67301Voqjdtru AbufjdkNCOWLERKV9737-33-49 18:05:008.6[facility] JfuvrapBGRCWWBYH9177-32-30 18:05:0029[facility] JXHGJDGZR7994-18-63 18:05:001.0[facility] WzyywhfHFJEQKOIR4963-83-48 18:05:73104 [facility] OndembrHLJEAUCPW4760-49-11 18:05:003.6[facility]annHEMATOLOGY 2012-02-27 18:05:000.0[facility] CqzhdfcYQRQPNHVIO5099-31-50 18:05:009.9[facility] VmmjywmYRFEDEPCQU0564-97-64 18:05:000.5[facility] MutikshARGFVBHTDH8839-42-84 18:05:001.6[facility] HcrpsjeBKIBZGCFUB6373-64-99 18:05:000.0[facility] QLBFPAKNFK6676-45-24 18:05:000.2[facility] SazztcfFWQCNJHARM3752-42-40 18:05:00 82.0[facility] YqfogtsQCTJBBEPDA5013-42-96 18:05:000.1[facility] HermannHEMATOLOGY 2012-02-27 18:05:0013.3[facility] QfeugaoCRMUZTFASB5580-02-00 18:05:004.4[facility] WgvjbieYIGCNQSRUB1573-71-61 18:05:005.93[facility] IzvqjfpCWUYNTKQHZ6658-24-93 18:05:0018.4[facility] TqpseofDTQVTADKHD7600-43-74 18:05:0091.9[facility] DUTCOPLOSS6698-80-39 18:05:0054.4[facility] LhwbnpgKOPWZKXRGZ4811-77-61 18:05:00* Test Item Value Reference Range Interpretation Comments MCH (test code = MCH) 31.1 pg 27.0-31.0 [facility] MnozqbrKUTJSGWUKD4898-99-60 18:05:0033.9[facility]annHEMATOLOGY 2012-02-27 18:05:0013.1[facility] MadrjrlACKOALTSZN8576-04-81 18:05:009.7[facility] VmtxzvwHMVUEJDUZF8304-78-86 18:05:97913Mdvlsjua CapqemfDXMPSINRAH9694-74-33 18:05:0012.0[facility] ItaozgfCUXJDYOTPE5597-54-59 18:05:00* Test Item Value Reference Range Interpretation Comments PTT (test code = PTT) 27.7 s 22.9-35.8 N [facility] MsvqgxkWRHXMDFBBR7516-36-02 18:05:00* Test Item Value Reference Range Interpretation Comments PT (test code = PT) 12.7 s 12.0-14.7 N [facility] OobxzxjPOZVQHGYMP1435-75-59 18:05:000.95[facility]annCT [facility]BD[facility]/PELVIS [place] [address] Patient Name: FRANSISCA RATLIFF MR #: [id number] : 1955 Age/Sex: 62/M Req #: [id number] Adm Physician: Ordered by: ALFREDITO TUBBS TILE CONDUIT LAYER Report #: [id number] Location: Room/Bed: Procedure: [id number] CT/CT ABDOMEN/PELVIS W Exam Date: 07/23/17 Exam Time: 1429 REPORT STATUS: S igned PROCEDURE: CT ABDOMEN AND PELVIS WITH CONTRAST TECHNIQUE: The abdomen and pelvis were scanned utilizing a multidetector helical scanner fro m the diaphragm to the lesser trochanter after the IV administration of 100 c c of Isovue 370 and the oral administration of gastrografin. Coronal and sagi ttal multiplanar reformations were obtained. Total DLP: 824.2 mGy-cm COMPARISON: None. INDICATIONS: RIGHT LOWER QUADRANT PAIN FINDI NGS: LOWER THORAX: Normal. HEPATOBILIARY: No focal hepatic lesions. No biliary ductal dilatation. SPLEEN: No splenomegaly. PANCREAS: No focal cristo s or ductal dilatation. ADRENALS: No adrenal nodules. KIDNEYS/URETERS: N o hydronephrosis, stones, or solid mass lesions. PELVIC ORGANS/BLADDER: The pr ostate measures 5.5 cm in transverse dimension with coarse dystrophic calcifi cations.. PERITONEUM / RETROPERITONEUM: No free air or fluid. LYMPH NODE S: No lymphadenopathy. VESSELS: Mild atherosclerotic calcifications in the aor ta. GI TRACT: No distention or wall thickening. Scattered sigmoid colon diverticula without evidence of diverticulitis. Appendix is normal. BONES AND SOFT TISSUES: Bilateral fat containing inguinal hernia, right greater th an left. IMPRESSION: 1. Normal appendix. 2. Bilateral fat containi ng inguinal hernia, right greater than left. No fluid or inflammatory change s to suggest incarceration. Dictated by: Tin García M.D. on 07/23/2017 at 15:11 Electronically approved by: Tin García M.D. on 07/23/2017 at 15:11 Dictated By: TIN GARCÍA MD 1511 Transcribed By: VIDAL on 07/23/17 1511 COPY TO: SCAR TUBBS NP CT BRAIN WO [place] [address] Patient Name: FRANSISCA RATLIFF MR #: [id number] : 1955 Age/Sex: 61/M Req #: [id number] Adm Physician: Ordered by: BLANKA CHAMBERS MD Report #: [id number] Location: Room/Bed: Procedure: [id number] CT/CT BRAIN WO Exam Date: Exam Time: 1053 REPORT STATUS: Signed History:Headache, dizziness, family history of aneurysm Comparison studies:CT head 07/27/2016 Technique: Axial images were obtained from the skull base to the vertex. Coronal and sagittal images reconstructed from the axial data. Intravenous contrast: None Findings: Scalp/skull: No abnormaliti es. Extra-axial spaces: No masses. No fluid collections. Brain sul ci: Mildly prominent. Ventricles: Mild compensatory dilatation. No hydrocephal us. Parenchyma: Stable hypodensities in the supratentorial white matter are small vessel ischemic changes. Small chronic lacunar infarcts in the bilat eral striatocapsular and left thalamocapsular regions, stable No masses, hemor rhage, acute or chronic cortical vascular insults. Sellar/suprasellar reg ion: No abnormalities. Craniocervical junction: Patent foramen magnum. No Chi fay one malformation. Incidental findings: Atherosclerotic calcifications in the carotid siphons . Impression: No acute abnormalities. Stable f rom previous examination. Chronic findings: 1. Mild generalized volume l oss. 2. Mild to moderate supratentorial white matter small vessel ischemic ch anges. Signed by: DR Beau Christianson M.D. on 07/04/2017 11:29 AM Dictated By: BEAU DOUGLASS MD 1129 Transcribed By: IFEANYI on 07/04/17 5616 COPY TO: LBANKA CHAMBERS MD
[2020-03-19 14:16] LABS: BASOPHILS % 0.6 % (0.0-1.0); EOSINOPHILS # (AUTO) 0.2 (0.0-0.4); EOSINOPHILS % 2.4 % (0.0-6.0); HEMATOCRIT 44.2 % (38.2-49.6); HEMOGLOBIN 15.2 g/dL (14.0-18.0); LYMPHOCYTES # (AUTO) 1.5 (1.0-3.2); LYMPHOCYTES % 22.5 % (18.0-39.1); MEAN CORPUSCULAR HEMOGLOBIN 30.4 pg (28-32); MEAN CORPUSCULAR HGB CONC 34.4 g/dL (31-35); MEAN CORPUSCULAR VOLUME 88.4 fL (81-99); MONOCYTES # (AUTO) 0.5 (0.2-0.8); MONOCYTES % 6.7 % (4.4-11.3); NEUTROPHILS # (AUTO) 4.6 (2.1-6.9); NEUTROPHILS % 67.4 % (38.7-80.0); PLATELET COUNT 186 x10e3/uL (140-360); RED CELL DISTRIBUTION WIDTH 12.9 % (11.7-14.4)
[2020-03-19 14:38] LABS: ALANINE AMINOTRANSFERASE 17 IU/L (0-55); ALBUMIN 3.8 g/dL (3.5-5.0); ALBUMIN/GLOBULIN RATIO 1.1 (0.8-2.0); ALKALINE PHOSPHATASE 92 IU/L (40-150); ANION GAP 14.8 mmol/L (8-16); BLOOD UREA NITROGEN 12 mg/dL (7-26); BUN/CREATININE RATIO 15 (6-25); CALCIUM 8.8 mg/dL (8.4-10.2); CARBON DIOXIDE 26 mmol/L (22-29); CHLORIDE 103 mmol/L (98-107); CREATININE, SERUM 0.79 mg/dL (0.72-1.25); EST GLOMERULAR FILTRATION RATE > 60 ML/MIN (60-); GLUCOSE 180 mg/dL (74-118); POTASSIUM 3.8 mmol/L (3.5-5.1); SODIUM 140 mmol/L (136-145)
--- NOTE | 2020-03-19 14:46 | Diagnostic Imaging Report ---
EXAMINATION: CHEST SINGLE (PORTABLE) INDICATION: Chest pain COMPARISON: Chest radiograph 07/27/2016 FINDINGS: LINES/TUBES:EKG leads overlie the chest. LUNGS:The lungs are moderately inflated. There is perihilar fullness and indistinctness of the pulmonary vasculature. Mild left basilar opacities. PLEURA:No pleural effusion or pneumothorax. MEDIASTINUM:The cardiomediastinal silhouette appears slightly enlarged, likely magnified due to portable technique. BONES/SOFT TISSUES:No acute osseous injury. ABDOMEN:No free air under the diaphragm. IMPRESSION: Central pulmonary vascular congestion. Mild left basilar opacities may represent subsegmental atelectasis however superimposed pneumonia should be excluded clinically. Signed by: Tonya Moise MD on 03/19/2020 2:42 PM
--- NOTE | 2020-03-19 15:01 | Emergency Department Note ---
History of Present Illnes History of Present Illness Chief Complaint: Chest Pain History of Present Illness This is a 64 year old male cc NON RADIATING CP WITH SOB X 3 DAYS C/O SARKAR NO BLURRED VISION NO RINGING IN EARS NO JAW PAIN HX OF CVA APHASIC ABLE TO ANSWER YES/NO QUESTIONS STATES HE'S HAD A PREVIOUS PA . Historian: Patient Arrival Mode: Car Onset (how long ago): day(s) (3) Location: Left chest Quality: dull Severity: mild Onset quality: gradual Duration (how long): day(s) (3) Timing of current episode: constant Progression: unchanged Chronicity: recurrent Relieving factors: none Exacerbating factors: none Treatments prior to arrival: none Past Medical/Family History Physician Review I have reviewed the patient's past medical and family history. Any updates have been documented here. 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 Social History Smoking Cessation: Never Smoker Counseling Performed: No Alcohol Use: None Any Illegal Drug Use: No Other Last Tetanus: UNK Any Pre-Existing Lines (PICC,: No Review of Systems Review of Systems Constitutional: Reports no symptoms EENTM: Reports no symptoms Cardiovascular: Reports no symptoms, Reports chest pain Respiratory: Reports no symptoms, Reports dyspnea Gastrointestinal: Reports no symptoms Genitourinary: Reports no symptoms Musculoskeletal: Reports no symptoms Integumentary: Reports no symptoms Neurological: Reports no symptoms Psychological: Reports no symptoms Endocrine: Reports no symptoms Hematological/Lymphatic: Reports no symptoms Review of other systems: All other systems negative Physical Exam Related Data Allergies: Coded Allergies: No Known Allergies (Unverified , 07/04/17) Triage Vital Signs Vital Signs Date Time Temp Pulse Resp B/P (MAP) Pulse Ox O2 Delivery O2 Flow Rate FiO2 03/19/20 13:24 99.9 75 18 118/74 96 Room Air Physical Exam CONSTITUTIONAL Constitutional: Present well-developed, Present well-nourished HENT HENT: Present normocephalic, Present atraumatic, Present oropharynx clear/moist, Present nose normal HENT L/R: Present left ext ear normal, Present right ext ear normal EYES Eyes: Reports PERRL, Reports conjunctivae normal NECK Neck: Present ROM normal PULMONARY Pulmonary: Present effort normal, Present breath sounds normal CARDIOVASCULAR Cardiovascular: Present regular rhythm, Present heart sounds normal, Present capillary refill normal, Present normal rate GASTROINTESTINAL Abdominal: Present soft, Present nontender, Present bowel sounds normal GENITOURINARY Genitourinary: Present exam deferred SKIN Skin: Present warm, Present dry MUSCULOSKELETAL Musculoskeletal: Present ROM normal NEUROLOGICAL Neurological: Present alert, Present oriented x 3, Present no gross motor or sensory deficits PSYCHOLOGICAL Psychological: Present mood/affect normal, Present judgement normal Results Laboratory Result Diagram: 03/19/20 1349 03/19/20 1349 Laboratory Laboratory Tests Test 03/19/20 13:49 White Blood Count 6.76 x10e3/uL (4.8-10.8) Red Blood Count 5.00 x10e6/uL (4.3-5.7) Hemoglobin 15.2 g/dL (14.0-18.0) Hematocrit 44.2 % (38.2-49.6) Mean Corpuscular Volume 88.4 fL (81-99) Mean Corpuscular Hemoglobin 30.4 pg (28-32) Mean Corpuscular Hemoglobin Concent 34.4 g/dL (31-35) Red Cell Distribution Width 12.9 % (11.7-14.4) Platelet Count 186 x10e3/uL (140-360) Neutrophils (%) (Auto) 67.4 % (38.7-80.0) Lymphocytes (%) (Auto) 22.5 % (18.0-39.1) Monocytes (%) (Auto) 6.7 % (4.4-11.3) Eosinophils (%) (Auto) 2.4 % (0.0-6.0) Basophils (%) (Auto) 0.6 % (0.0-1.0) Neutrophils # (Auto) 4.6 (2.1-6.9) Lymphocytes # (Auto) 1.5 (1.0-3.2) Monocytes # (Auto) 0.5 (0.2-0.8) Eosinophils # (Auto) 0.2 (0.0-0.4) Basophils # (Auto) 0.0 (0.0-0.1) Absolute Immature Granulocyte (auto 0.03 x10e3/uL (0-0.1) D-Dimer Quantitative (PE/DVT) 0.38 ug/mLFEU (0.00-0.45) Sodium Level 140 mmol/L (136-145) Potassium Level 3.8 mmol/L (3.5-5.1) Chloride Level 103 mmol/L (98-107) Carbon Dioxide Level 26 mmol/L (22-29) Anion Gap 14.8 mmol/L (8-16) Blood Urea Nitrogen 12 mg/dL (7-26) Creatinine 0.79 mg/dL (0.72-1.25) Estimat Glomerular Filtration Rate > 60 ML/MIN (60-) BUN/Creatinine Ratio 15 (6-25) Glucose Level 180 mg/dL (74-118) Calcium Level 8.8 mg/dL (8.4-10.2) Total Bilirubin 1.0 mg/dL (0.2-1.2) Aspartate Amino Transf (AST/SGOT) 21 IU/L (5-34) Alanine Aminotransferase (ALT/SGPT) 17 IU/L (0-55) Alkaline Phosphatase 92 IU/L (40-150) B-Type Natriuretic Peptide 77.7 pg/mL (0-100) Total Protein 7.3 g/dL (6.5-8.1) Albumin 3.8 g/dL (3.5-5.0) Globulin 3.5 g/dL (2.3-3.5) Albumin/Globulin Ratio 1.1 (0.8-2.0) Lab results reviewed: Yes Imaging Imaging results reviewed: Yes Procedures 12 Lead ECG Interpretation ECG Interpretation : ECG: ECG 1 Scaffolder: Interpreted by ED physician Date: Mar 19, 2020 Prior ECG tracings: reviewed Rhythm: sinus rhythm Rate: normal Clinical Decision Tools HEART Score Date Taken: Mar 19, 2020 HEART Score: HEART Score Response (Comments) Value History Slightly suspicious 0 EKG Non specific repolarization 1 Age > or equal to 65 2 Risk factors 3 or more risk factors OR hx of CAD 2 Troponin < or = to normal limit Total 5 Assessment & Plan Medical Decision Making MDM 64 y.o M with 3 weeks CP. Patient states he has had this before. History largely obtained from as he has residual difficulty speaking from prior CVA. He has a cardiology appt in 3 days. Initial differential sig for ACS, PNA, MSK pain, aortic dissection.. Cardiopulmonary workup benign and I doubt emergent process a this time. Repeat troponin, EKG unremarkable. Discussed management with patient and and offered admission. They prefer to f/u with cardiology appointment. Patient was re-examined and is appropriate for DC. Reassessment Reassessment time: 19:00 Reassessment Well appearing, NAD Assessment & Plan Final Impression: (1) Chest pain Depart Disposition: HOME, SELF-CARE Last Vital Signs Date Time Temp Pulse Resp B/P (MAP) Pulse Ox O2 Delivery O2 Flow Rate FiO2 03/19/20 13:24 99.9 75 18 118/74 96 Room Air Thaddeus Han MD Mar 19, 2020 15:01
== END 2020-03-19 19:04 | disposition home or self-care (01) ==
LOC: ER 13:39
DX: R07.9 Chest pain, unspecified (principal); R50.9 Fever, unspecified; I69.30 Unspecified sequelae of cerebral infarction
CPT/HCPCS: 36415; 71045; 80053; 83880; 84484; 85025; 85379; 93005; 99284

== ENCOUNTER 2021-08-14 10:30 | Emergency (ER) | payer MEDICARE ==
[~2021-08-14] VITALS: Ht 167.6 cm; Wt 90.7 kg
[2021-08-14] MEDS ORDERED: ACETAMINOPHEN 325 MG TAB PO ONE (11:15)
== END 2021-08-14 11:19 | disposition home or self-care (01) ==
LOC: ER 10:40
DX: R60.9 Edema, unspecified (principal); I10 Essential (primary) hypertension; E78.5 Hyperlipidemia, unspecified; I69.328 Other speech and language deficits following cerebral infarction
CPT/HCPCS: 99282

== ENCOUNTER 2022-03-28 14:10 | Emergency (ER) | payer MEDICARE ==
[~2022-03-28] VITALS: Ht 167.6 cm; Wt 90.7 kg
== END 2022-03-28 15:00 | disposition home or self-care (01) ==
LOC: ER 14:30
DX: R60.9 Edema, unspecified (principal); I10 Essential (primary) hypertension; E78.5 Hyperlipidemia, unspecified; I69.328 Other speech and language deficits following cerebral infarction
CPT/HCPCS: 99282

== ENCOUNTER 2024-08-15 19:24 | Emergency (ER) | payer MEDICARE ==
[~2024-08-15] VITALS: Ht 167.6 cm; Wt 90.7 kg
[2024-08-15 22:37] LABS: BASOPHILS % 0.4 % (0.0-1.0); EOSINOPHILS # (AUTO) 0.2 (0.0-0.4); EOSINOPHILS % 2.8 % (0.0-6.0); HEMATOCRIT 48.4 % (38.2-49.6); HEMOGLOBIN 15.8 g/dL (14.0-18.0); LYMPHOCYTES % 25.5 % (18.0-39.1); MEAN CORPUSCULAR HEMOGLOBIN 31.5 pg (28-32); MEAN CORPUSCULAR HGB CONC 32.6 g/dL (31-35); MEAN CORPUSCULAR VOLUME 96.4 fL (81-99); MONOCYTES # (AUTO) 0.8 (0.2-0.8); MONOCYTES % 9.9 % (4.4-11.3); NEUTROPHILS # (AUTO) 4.8 (2.1-6.9); PLATELET COUNT 156 x10e3/uL (140-360); RED BLOOD COUNT 5.02 x10e6/uL (4.3-5.7); RED CELL DISTRIBUTION WIDTH 12.9 % (11.7-14.4); WHITE BLOOD COUNT 7.89 x10e3/uL (4.8-10.8)
[2024-08-15 22:59] LABS: ALBUMIN 4.3 g/dL (3.5-5.0); ALBUMIN/GLOBULIN RATIO 1.2 (0.8-2.0); ANION GAP 15.8 mmol/L (8-16); BILIRUBIN,TOTAL 0.7 mg/dL (0.2-1.2); CALCIUM 9.9 mg/dL (8.4-10.2); CREATININE, SERUM 0.81 mg/dL (0.72-1.25); POTASSIUM 3.8 mmol/L (3.5-5.1); TOTAL PROTEIN 7.9 g/dL (6.5-8.1)
[2024-08-15] MEDS: METOCLOPRAMIDE HCL 10 MG/2ML VIAL IV STA (23:31)
[2024-08-15] MEDS: DIPHENHYDRAMINE HCL INJ 50 MG/ML VIAL IV STA (23:32)
[2024-08-15] MEDS: KETOROLAC TROMETHAMINE 30 MG/ML VIAL IV STA (23:33)
[2024-08-15] MEDS: METHYLPREDNISOLONE SOD SUCC 125 MG/2ML VIAL IV STA (23:34)
[2024-08-15] MEDS: SODIUM CHLORIDE 0.9% 1000ML 1,000 ML IV STA (23:36)
[2024-08-16 01:24] VITALS: PULSE 79; RESP 18; TEMP 98.2; O2SAT 98
== END 2024-08-16 01:27 | disposition home or self-care (01) ==
LOC: ER 19:31
DX: R51.9 Headache, unspecified (principal); I10 Essential (primary) hypertension; E78.5 Hyperlipidemia, unspecified; I69.328 Other speech and language deficits following cerebral infarction
CPT/HCPCS: 36415; 70450; 80053; 85025; 99284; J1200; J1885; J2765; J2919; J7030